=== PATIENT | male | born 1950 | race Caucasian/White ===

== ENCOUNTER → 2018-10-04 14:46 | Outpatient (CLI) | payer MEDICARE, OTHER, SELFPAY ==
[2018-10-04 16:31] LABS: Hemoglobin A1C% w Est Avg Glu 7.5 % (4.0-6.0)
== END ==
PROVIDERS: Family Provider Family Medicine; PCP Family Medicine; Visit Provider Orthopaedic Surgery
DX: R73.9 Hyperglycemia, unspecified (principal)
CPT/HCPCS: 36415; 83036

== ENCOUNTER → 2018-10-09 14:51 | Outpatient (CLI) | payer MEDICARE, OTHER, SELFPAY ==
[2018-10-09 15:08] LABS: Bacteria Urine None Seen; RBC Urine None Seen (0-5/HPF); WBC Urine None Seen (0-5/HPF)
[2018-10-09 15:23] LABS: Add Manual Diff / Slide Review NO; Basophils Absolute Auto 0 /uL (0-100); Basophils Percent Auto 0.5 % (0-2); Eosinophils Absolute Auto 200 /uL (0-450); Eosinophils Percent Auto 1.7 % (2-4); Hematocrit 44.7 % (41-53); Hemoglobin 15.4 g/dL (13.5-17.5); Lymphocytes Absolute Auto 2100 /uL (1100-4500); Lymphocytes Percent Auto 23.1 % (25-40); Mean Corpuscular HGB Conc 34.4 % (30-36); Mean Corpuscular Hemoglobin 33.9 PG (26-34); Mean Corpuscular Volume 98.5 fL (80-100); Monocytes Absolute Auto 500 /uL (0-900); Monocytes Percent Auto 5.8 % (3-14); Neutrophils Absolute Auto 6200 /uL (1500-7000); Neutrophils Percent Auto 68.9 % (50-75); Platelet Count 337 X10^3/uL (150-400); Red Blood Cell Count 4.54 X10^6/uL (4.5-5.9); Red Cell Distribution Width 12.7 % (11.6-14.8)
[2018-10-09 15:46] LABS: Appearance Urine UA CLEAR; Bilirubin Urine UA NEGATIVE (NEGATIVE); Color Urine UA YELLOW; Glucose Urine UA 1+ g/dL (Negative); Ketones Urine UA NEGATIVE (NEGATIVE); Leukocyte Esterase Urine UA TRACE (NEGATIVE); Nitrite Urine UA NEGATIVE (Negative); Occult Blood Urine UA NEGATIVE (Negative); Protein Urine UA NEGATIVE (Negative); Specific Gravity Urine UA 1.015 (1.000-1.035); Urobilinogen Urine UA 0.2 E.U./dL (0.2); pH Urine UA 6.5 (4.5-8.0)
[2018-10-09 15:47] LABS: BUN Creatinine Ratio 17.3 (6-22); Blood Urea Nitrogen 19 mg/dL (9-20); Calcium 10.2 mg/dL (8.4-10.2); Carbon Dioxide 28 mmol/L (22-32); Chloride 98 mmol/L (98-107); Estimated Glomerular Filt Rate > 60.0 mL/min (>60); Glucose 222 mg/dL (80-110); HEMOLYSIS < 15 (0-50); Potassium 5.1 mmol/L (3.4-5.1); Sodium 136 mmol/L (137-145)
[2018-10-09 15:54] LABS: Squamous Epithelial Cell Urine 0-1 /HPF; Transitional Epi Cells Urine 0-1/HPF (0-5/HPF)
== END ==
PROVIDERS: Family Provider Family Medicine; PCP Family Medicine; Visit Provider Orthopaedic Surgery
DX: N30.00 Acute cystitis without hematuria (principal); Z01.818 Encounter for other preprocedural examination
CPT/HCPCS: 36415; 80048; 81001; 85025

== ENCOUNTER 2018-10-17 14:05 | Outpatient (RCR) | payer MEDICARE, OTHER, SELFPAY ==
--- NOTE | 2018-10-17 18:28 | PT.OIE ---
Current Diagnoses Unilateral primary osteoarthritis, left hip (10/17/18) Past Medical History (Last Updated 10/08/18 @ 11:23 by Shamika Macias RN) Acid reflux (Acute) Chronic neck and back pain (Acute) Constipation (Acute) DJD (degenerative joint disease) (Acute) Diabetes (Acute) Edema (Acute) HTN (hypertension) (Acute) Hyperlipidemia (Acute) IBS (irritable bowel syndrome) (Acute) Neuropathy (Acute) Past Surgical History (Last Updated 10/08/18 @ 11:23 by Shamika Macias RN) History of colonoscopy (Acute) Hx of shoulder surgery (Acute) Hx of tonsillectomy (Acute) Provider Visit Care Team Role Provider Type Eusebia Tabares MD Primary Care Provider Non-Staff Specialty: Medical Address: [address] [place] [address], [id number] Email: Cristina Gooden MD Attending Provider Physician Specialty: Orthopedic Surgery Address: [address] [place] [address], [id number] Email: [email or web address] Physical Therapy Initial Evaluation PT-OP-A Visit Information Start: 10/17/18 15:14 Freq: Status: Active Protocol: Document 10/17/18 14:30 (Rec: 10/17/18 15:17 [email or web address]) Out-Patient Physical Therapy Visit Information Visit Information Visit Type Initial Evaluation Visit Note Pt scheduled posterior L DINO on 10/21/18 in . This IE for preop education Visit Start Time 14:30 Visit Stop Time 15:00 Total Visit Minutes 30 Visit Number 1 Number of DIE DESIGNER Visits 0 Evaluation Information Evaluation Date 10/17/18 Precautions Precautions Post hip DINO precautions PT-OP-B Current Condition Start: 10/17/18 15:14 Freq: Status: Active Protocol: Document 10/17/18 14:30 (Rec: 10/17/18 18:27 [email or web address]) Current Condition History of Current Condition Onset Date Many years ago Current Complaints L hip pain due to OA, difficulty in walking History of Current Condition Pt states he has chronic hip pain for both sides since more than 10 years ago with L>R. Pain started to get worse 2 years ago and he received conservative therapy here in [facility] before and did get better a little bit. However, pt c/o his hip pain has been increased and overall mobility is declining. Pt states his pain gets worse after walking 2-3 blocks, prolonged sitting/ standing, bending down which limits his activity tolerance for household activities such as cleaning and stair climbing . Pt currently uses a cane for ambulation. Pt lives alone with 15-18 step for stairs with rails. Future Testing and Treatments Planned Pt will receive L DINO posterior approach on 10/21/18 and decided to stay in [facility] for 2-3 days and transfer to SNF for rehab until he is safe to d/c home. Treatment Goals Patient/Caregiver Goals To return walking 2 miles a day without pain and using AD To picking tech object from floor without pain Personal Factors Other Personal Factors That May Effect DM Therapy/Recovery PT-OP-C Subjective Start: 10/17/18 15:14 Freq: Status: Active Protocol: Document 10/17/18 14:30 HH (Rec: 10/17/18 18:27 [email or web address]) OP-PT Subjective Patient Comments Patient Comments I hope this surgery will help me. Patient Questionnaires Lower Extremity Functional Scale LEFS Score 34 LEFS Impairment 40 to 59% Impaired (Score 32- 47) OP-PT Pain Assessment Location Right Hip Intensity 2 Scale Used Numeric (1 - 10) Description Aching Dull Frequency Occasional Pain Aggravating Factors Activity Exercise Standing Walking Stair Climbing Bending Pain Alleviating Factors Lying Supine Left Hip Intensity 4 Scale Used Numeric (1 - 10) Description Aching Dull Frequency Constant Pain Aggravating Factors ADL's Activity Exercise Sitting Walking Stair Climbing Bending Lifting Pain Alleviating Factors Inactivity Lying Supine PT-OP-G Mobility & Gait Start: 10/17/18 15:14 Freq: Status: Active Protocol: Document 10/17/18 14:30 HH (Rec: 10/17/18 18:27 [email or web address]) OP Gait Assessment Assistive Devices Assistive Device Small Based Quad Cane Gait Deviations General Gait Pattern Antalgic Decreased Stride Length Decreased Feet Clearance Flexed Trunk PT-OP-J Posture/Palpation/Skin Start: 10/17/18 15:14 Freq: Status: Active Protocol: Document 10/17/18 14:30 HH (Rec: 10/17/18 18:28 [email or web address]) Posture Evaluation Position Standing Head/C-Spine Posture Forward Head T-Spine Posture Increased Kyphosis Scapula Posture (L) Protracted (R) Protracted (L) Elevated (R) Elevated PT-OP-K Range of Motion Start: 10/17/18 15:14 Freq: Status: Active Protocol: Document 10/17/18 14:30 HH (Rec: 10/17/18 18:27 [email or web address]) Hip Goniometric Range of Motion Hip Measured in Degrees Right Passive Hip ROM WFL No Testing Position Supine Flexion w/Knee Flexed 95 Extension 0 Abduction 30 Left Passive Hip ROM WFL No Testing Position Supine Flexion w/Knee Flexed 90 Extension 0 Abduction 15 Hip ROM Limitations Hip ROM Limitations Pain Comments pain at all end range PT-OP-L Special Tests Start: 10/17/18 15:14 Freq: Status: Active Protocol: Document 10/17/18 14:30 HH (Rec: 10/17/18 18:27 [email or web address]) Special Tests Hip Special Tests Scour Test Test Results +ve ANG Test Results +ve PT-OP-M Strength Start: 10/17/18 15:14 Freq: Status: Active Protocol: Document 10/17/18 14:30 HH (Rec: 10/17/18 18:27 [email or web address]) Hip Strength Hip Manual Muscle Testing Right Flexion (L2) 4 Good Extension (S1) 4 Good Abduction 4 Good Adduction 4 Good Left Flexion (L2) 3+ Fair+ Extension (S1) 3+ Fair+ Abduction 3+ Fair+ Adduction 3+ Fair+ Knee Strength Knee Manual Muscle Testing Right Flexion (S2) 5 Normal Extension (L3) 5 Normal Left Flexion (S2) 5 Normal Extension (L3) 5 Normal PT-OP-Q Treatments Start: 10/17/18 15:14 Freq: Status: Active Protocol: Document 10/17/18 14:30 HH (Rec: 10/17/18 18:27 [email or web address]) Therapeutic Activity Therapeutic Activity sit to stand with stagger stance Comments keep LLE slightly straight during sit to stand to prevent >90 flexion Self-Care/Home Management Treatment Education Patient Education Body Mechanics Home Exercise Program Joint Protection Pain Management Posture Safety Other Education Post op DINO precautions and HEP with ankle pumps and quad sets, glut set and heel slides PT-OP-T Assessment and Plan Start: 10/17/18 15:14 Freq: Status: Active Protocol: Document 10/17/18 14:30 HH (Rec: 10/17/18 18:27 [email or web address]) Physical Therapy Assessment Rehab Potential Rehabilitation Potential Excellent Evaluation Complexity Number of Personal Factors/Comorbidities 1-2 Number of Body Systems Impaired 1-2 Clinical Presentation at Evaluation Stable Impairments Impairments Activity Tolerance Balance Functional Activities Functional Mobility Gait Pain Posture ROM Soft Tissue Mobility Strength Transfers Goals Activity tolerance Impairment tolerance for sitting and standing Short Term Goal (STG) Able to stand /sit more than 10 mins without pain /use of AD STG Duration 6 weeks Carpet Inspector Finished Goal (LTG) Able to stand/ sit more than 20 mins without pain/ use of AD LTG Duration 12 weeks amb distance Impairment reduced amb distance Short Term Goal (STG) able to amb 1 mile without AD and pain free STG Duration 6 weeks Care Home Goal (LTG) able to amb 2 miles without AD and pain free LTG Duration 12 weeks LEFS Impairment LEFS Carpet Inspector Finished Goal (LTG) Reach 1-19% impairment bracket LTG Duration 12 weeks HEP Impairment Follow HEP Carpet Inspector Finished Goal (LTG) pt currently does not have HEP and will follow HEP to increase overall mobility and strength for ADLs and IADLs LTG Duration 8 weeks Assessment Summary Assessment Pt is a very pleasant and motivated 68yo male presented to clinic today for preop education and training for his upcoming Posterior approach L DINO on 10/21/2018. Upon assessment, pt presents R antalgic gait with decreased R foot clearance and stride length primarily due to pain. He also demonstrated significant muscle guarding bilaterally during passive hip ROM, along with significant loss of hip ROM and strength due to his chronic B hip OA. Pt demonstrates a good understanding of his upcoming surgery and the importance of rehab and HEP. Pt is expected to be transferred to SNF for 2 weeks of rehab and d/c home with outpatient PT (1st appt on 11/04). Reeval next visit Physical Therapy Plan Frequency and Duration Frequency of Treatment 2x/Week Duration of Treatment 12 weeks Plan of Care Start Date 10/17/18 Plan of Care End Date 01/14/19 Therapeutic Interventions Therapeutic Interventions Balance Training Gait Training Home Exercise Program Manual Therapy Neuromuscular Re-education Patient/Caregiver Education Self-Care/Home Management Soft Tissue Mobilization Therapeutic Activities Therapeutic Exercises Modalities Cold Pack/Ice Massage Hot Packs Next Visit Focus/Plan Next Note Type Re-Evaluation Next Visit Plan Reeval next visit L DINO on 10/21/18
--- NOTE | 2018-10-17 18:28 | PT.OPPOC ---
Current Diagnoses Unilateral primary osteoarthritis, left hip (10/17/18) Provider Visit Care Team Role Provider Type Eusebia Tabares MD Primary Care Provider Non-Staff Specialty: Medical Address: [address] [place] [address], [id number] Email: Cristina Gooden MD Attending Provider Physician Specialty: Orthopedic Surgery Address: [address] [place] [address], [id number] Email: Plan Of Care PT-OP-T Assessment and Plan Start: 10/17/18 15:14 Freq: Status: Active Protocol: Document 10/17/18 14:30 HH (Rec: 10/17/18 18:27 [email or web address]) Physical Therapy Assessment Rehab Potential Rehabilitation Potential Excellent Evaluation Complexity Number of Personal Factors/Comorbidities 1-2 Number of Body Systems Impaired 1-2 Clinical Presentation at Evaluation Stable Impairments Impairments Activity Tolerance Balance Functional Activities Functional Mobility Gait Pain Posture ROM Soft Tissue Mobility Strength Transfers Goals Activity tolerance Impairment tolerance for sitting and standing Short Term Goal (STG) Able to stand /sit more than 10 mins without pain /use of AD STG Duration 6 weeks Cut Off Operator Scorer Goal (LTG) Able to stand/ sit more than 20 mins without pain/ use of AD LTG Duration 12 weeks amb distance Impairment reduced amb distance Short Term Goal (STG) able to amb 1 mile without AD and pain free STG Duration 6 weeks Cut Off Operator Scorer Goal (LTG) able to amb 2 miles without AD and pain free LTG Duration 12 weeks LEFS Impairment LEFS Cut Off Operator Scorer Goal (LTG) Reach 1-19% impairment bracket LTG Duration 12 weeks HEP Impairment Follow HEP Cut Off Operator Scorer Goal (LTG) pt currently does not have HEP and will follow HEP to increase overall mobility and strength for ADLs and IADLs LTG Duration 8 weeks Assessment Summary Assessment Pt is a very pleasant and motivated 68yo male presented to clinic today for preop education and training for his upcoming Posterior approach L DINO on 10/21/2018. Upon asssessment, pt presents R antalgic gait with decreased R foot clearance and stride length primarily due to pain. He also demonstrated significant muscle guarding bilaterally during passive hip ROM, along with significant loss of hip ROM and strength due to his chronic B hip OA. Pt demonstrates a good understanding of his upcoming surgery and the importance of rehab and HEP. Pt is expected to be transferred to SNF for 2 weeks of rehab and d/c home with outpatient PT (1st appt on 11/04). Reeval next visit Physical Therapy Plan Frequency and Duration Frequency of Treatment 2x/Week Duration of Treatment 12 weeks Plan of Care Start Date 10/17/18 Plan of Care End Date 01/14/19 Therapeutic Interventions Therapeutic Interventions Balance Training Gait Training Home Exercise Program Manual Therapy Neuromuscular Re-education Patient/Caregiver Education Self-Care/Home Management Soft Tissue Mobilization Therapeutic Activities Therapeutic Exercises Modalities Cold Pack/Ice Massage Hot Packs Next Visit Focus/Plan Next Note Type Re-Evaluation Next Visit Plan Reeval next vist L IDNO on 10/21/18 Plan of Care Dates Plan of Care Start Date 10/17/18 Plan of Care End Date 01/14/19 Please Sign and Return: I have reviewed this Plan of Care and certify that the skilled therapy services above are required to meet the patient?s needs. Physician Signature Date Printed Name and Credentials Clinical Instructor Signature Printed Name and Credentials
--- NOTE | 2019-01-20 09:42 | PT.OTN ---
Current Diagnoses Unilateral primary osteoarthritis, left hip (10/17/18) Physical Therapy Treatment Note PT-OP-A Visit Information Start: 10/17/18 15:14 Freq: Status: Active Protocol: Document 10/17/18 14:30 (Rec: 10/17/18 15:17 [email or web address]) Out-Patient Physical Therapy Visit Information Visit Information Visit Type Initial Evaluation Visit Note Pt scheduled posterior L DINO on 10/21/18 in . This IE for preop education Visit Start Time 14:30 Visit Stop Time 15:00 Total Visit Minutes 30 Visit Number 1 Number of DISTRICT AGENT Visits 0 Evaluation Information Evaluation Date 10/17/18 Precautions Precautions Post hip DINO precautions PT-OP-B Current Condition Start: 10/17/18 15:14 Freq: Status: Active Protocol: Document 10/17/18 14:30 (Rec: 10/17/18 18:27 [email or web address]) Current Condition History of Current Condition Onset Date Many years ago Current Complaints L hip pain due to OA, difficulty in walking History of Current Condition Pt states he has chronic hip pain for both sides since more than 10 years ago with L>R. Pain started to get worse 2 years ago and he received conservative therapy here in before and did get better a little bit. However, pt c/o his hip pain has been increased and overall mobility is declining. Pt states his pain gets worse after walking 2-3 blocks, prolonged sitting/ standing, bending down which limits his activity tolerance for household activities such as cleaning and stair climbing . Pt currently uses a cane for ambulation. Pt lives alone with 15-18 step for stairs with rails. Future Testing and Treatments Planned Pt will receive L DINO posterior approach on 10/21/18 and decided to stay in [facility] for 2-3 days and transfer to SNF for rehab until he is safe to d/c home. 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 Patient Questionnaires Lower Extremity Functional Scale LEFS Score 34 LEFS Impairment 40 to 59% Impaired (Score 32- 47) OP-PT Pain Assessment Location Right Hip Intensity 2 Scale Used Numeric (1 - 10) Description Aching Dull Frequency Occasional Pain Aggravating Factors Activity Exercise Standing Walking Stair Climbing Bending Pain Alleviating Factors Lying Supine Left Hip Intensity 4 Scale Used Numeric (1 - 10) Description Aching Dull Frequency Constant Pain Aggravating Factors ADL's Activity Exercise Sitting Walking Stair Climbing Bending Lifting Pain Alleviating Factors Inactivity Lying Supine PT-OP-G Mobility & Gait Start: 10/17/18 15:14 Freq: Status: Active Protocol: Document 10/17/18 14:30 HH (Rec: 10/17/18 18:27 [email or web address]) OP Gait Assessment Assistive Devices Assistive Device Small Based Quad Cane Gait Deviations General Gait Pattern Antalgic Decreased Stride Length Decreased Feet Clearance Flexed Trunk PT-OP-J Posture/Palpation/Skin Start: 10/17/18 15:14 Freq: Status: Active Protocol: Document 10/17/18 14:30 HH (Rec: 10/17/18 18:28 [email or web address]) Posture Evaluation Position Standing Head/C-Spine Posture Forward Head T-Spine Posture Increased Kyphosis Scapula Posture (L) Protracted (R) Protracted (L) Elevated (R) Elevated PT-OP-K Range of Motion Start: 10/17/18 15:14 Freq: Status: Active Protocol: Document 10/17/18 14:30 HH (Rec: 10/17/18 18:27 [email or web address]) Hip Goniometric Range of Motion Hip Measured in Degrees Right Passive Hip ROM WFL No Testing Position Supine Flexion w/Knee Flexed 95 Extension 0 Abduction 30 Left Passive Hip ROM WFL No Testing Position Supine Flexion w/Knee Flexed 90 Extension 0 Abduction 15 Hip ROM Limitations Hip ROM Limitations Pain Comments pain at all end range PT-OP-L Special Tests Start: 10/17/18 15:14 Freq: Status: Active Protocol: Document 10/17/18 14:30 HH (Rec: 10/17/18 18:27 [email or web address]) Special Tests Hip Special Tests Scour Test Test Results +ve ANG Test Results +ve PT-OP-M Strength Start: 10/17/18 15:14 Freq: Status: Active Protocol: Document 10/17/18 14:30 HH (Rec: 10/17/18 18:27 HH [email or web address]) Hip Strength Hip Manual Muscle Testing Right Flexion (L2) 4 Good Extension (S1) 4 Good Abduction 4 Good Adduction 4 Good Left Flexion (L2) 3+ Fair+ Extension (S1) 3+ Fair+ Abduction 3+ Fair+ Adduction 3+ Fair+ Knee Strength Knee Manual Muscle Testing Right Flexion (S2) 5 Normal Extension (L3) 5 Normal Left Flexion (S2) 5 Normal Extension (L3) 5 Normal PT-OP-Q Treatments Start: 10/17/18 15:14 Freq: Status: Active Protocol: Document 10/17/18 14:30 HH (Rec: 10/17/18 18:27 HH [email or web address]) Therapeutic Activity Therapeutic Activity sit to stand with stagger stance Comments keep LLE slightly straight during sit to stand to prevent >90 flexion Self-Care/Home Management Treatment Education Patient Education Body Mechanics Home Exercise Program Joint Protection Pain Management Posture Safety Other Education Post op IDNO precautions and HEP with ankle pumps and quad sets, glut set and heel slides PT-OP-T Assessment and Plan Start: 10/17/18 15:14 Freq: Status: Active Protocol: Document 01/20/19 09:40 AMB (Rec: 01/20/19 09:42 AMB [email or web address]) Physical Therapy Assessment Assessment Summary Assessment Baljeet was scheduled for 4 appointments of physical therapy after his total hip but canceled all of them stating that he no longer needs therapy, therefore he is discharged at this time. Physical Therapy Plan Discharge Physical Therapy Discharge Reasons No Longer Attending PT
== END 2019-01-22 16:42 ==
LOC: PHYS 14:05
PROVIDERS: PCP Family Medicine; Visit Provider Orthopaedic Surgery
DX: M16.12 Unilateral primary osteoarthritis, left hip (principal)
CPT/HCPCS: 97161; 97535

== ENCOUNTER 2018-10-21 11:56 | Inpatient (IN) | payer MEDICARE, OTHER, SELFPAY ==
[2018-10-08 10:52] VITALS: BMI 28.3
[2018-10-21] VITALS (13 sets, daily range): BP systolic 89–137; BP diastolic 55–77; PULSE 72–93; RESP 11–19; TEMP 36.3–36.8; O2SAT 92–100; BMI 28.3; BMI 30.6
[2018-10-21] MEDS: LACTATED RINGERS 1,000 ML 42 ML IV ×2 (12:25→15:22)
[2018-10-21] MEDS: VANCOMYCIN 1,000 MG/200 ML FROZ.PIGGY 200 MG IV (12:30)
[2018-10-21] MEDS: PREGABALIN 75 MG CAPSULE PO (12:45)
[2018-10-21] MEDS: ACETAMINOPHEN 325 MG TABLET 975 MG PO ×2 (12:45→21:42)
[2018-10-21] MEDS: CELECOXIB 200 MG CAPSULE PO (12:45)
[2018-10-21] MEDS: CEFAZOLIN 2 GM/100 ML FROZ.PIGGY IV ×2 (13:26→21:59)
--- NOTE | 2018-10-21 13:30 | PM.PREOP ---
Pre-operative Note Interval Note History & Physical reviewed/Exam performed by Physician: Yes Changes to H&P: No H&P completed within 30 days and has changed as indicated here:: sebaceous cyst on thoracic spine, no evidence of infection
--- NOTE | 2018-10-21 13:32 | P.OP_ITS ---
Operative Date/Time/Diagnoses Date of procedure: 10/21/18 Time of procedure: 13:31 Pre-op diagnosis: left hip osteoarthritis Post-op diagnosis: same Procedure & Clinicians Procedure: Left total hip arthroplasty Same procedure as scheduled: Yes Indications: The patient has had progressively worsening left hip pain with radiographic changes consistent with arthritis. Non-operative management has failed and the patient has requested total hip replacement. The risks, benefits and alternatives to surgery were discussed with the patient prior to proceeding. Risks discussed included, but were not limited to, failure to relieve pain, leg length discrepancy, dislocation, stiffness, infection, nerve damage, deep venous thrombosis, pulmonary embolism, stroke, coma, heart attack, permanent paralysis and , as well as the potential need for eventual revision of the prosthetic. Surgeon: Cristina Gooden Petroleum Production Engineer: Greg Bundy Anesthesia Type: General and Spinal Operative Notes Findings: Severe left hip osteoarthritis, adequate stability Closure Type: primary Specimen(s): none sent Prosthetic devices, grafts, tissues, transplants, or devices: [employer] R3 54 cup 36+ 4, anthology size 7 standard offset Applied: drain(s) Estimated Blood Loss (mL): 250 Blood products transfused: none Procedure in detail: The patient was seen in the pre-operative area, where the patient identified the left hip as the operative site and this was marked with my initials. The patient received pre-operative antibiotics and was taken to the operating room and placed on the operative table in the right lateral decubitus position after satisfactory anesthesia. A part time flexible clerk out was performed. The left leg was prepared from the ankle to the iliac crest with ChloroPrep in the usual fashion and draped through sterile drapes. The hip was approached through an approximately 20 cm incision centered over the greater trochanter and curving gently posteriorly as it went proximally. This was carried sharply to the fascia johny, which was divided and retracted with a self retaining retractor. The trochanteric bursa was excised with care being taken to avoid the sciatic nerve, which was identified and protected throughout the case. The short external rotators were incised and the capsulomuscular flap was raised and tagged for later repair. The hip was dislocated, and a femoral neck osteotomy performed approximately 15 mm above the lesser trochanter. Retractors were placed around the femur. The canal was opened with a box cutting osteotome, followed by a T handled reamer and a lateralizing reamer. The chili pepper broach was then used, followed by sequential broaching until there was good stability of the broach in the femur. Retractors were placed to expose the acetabulum. The labrum and central soft tissues were removed. Reaming was performed initially going up in 2 mm increments, then 1 mm increments until good bite was obtained with an odd sized reamer. The cup 1 mm larger than the last reamer was then inserted using the appropriate anteversion guides. A trial neutral liner was placed. The broach was placed in the canal. A trial head and neck were then placed and the hip relocated and checked for leg length and stability. An intraoperative film confirmed the component position and no evidence of fracture. The patient was stable in the position of sleep, of squatting, and could be put through a range of motion with 45 degrees internal rotation without dislocation. At 90 degrees flexion, internal rotation to 70 degrees was possible before dislocation. This was felt to be satisfactory and the appropriate components were opened, and the trials were removed. The acetabular liner was impacted into position. The final stem was then impacted into the prepared femoral canal. A brief Betadine soak was performed while trialing with head options. The hip was meticulously irrigated with normal saline. Finally the femoral head was impacted onto the stem. The acetabulum was cleared of all material and the hip relocated one final time. The capsulomuscular flap was then repaired to the greater trochanter though an awl hole using the tag sutures. The short external rotators were repaired with a nonabsorbable suture. A deep drain was placed and brought out anteriorly. The fascia johny was closed with vicryl. The subcutaneous layer was closed with barbed sutures and SteriStrips. An Dariela dressing was applied and the patient was taken to recovery having tolerated the procedure well. Complications: none Condition: stable Disposition: Acute Care Plan for aftercare: Patient will be admitted postoperatively after his left hip arthroplasty. He has diabetes which is somewhat difficult to control. A medical consultation has been requested. He will begin physical therapy with routine posterior hip precautions. I anticipate he will need a several day hospital stay and likely would benefit from discharge to rehab facility.
--- NOTE | 2018-10-21 13:58 | SUR.OPER ---
Lateral on padded OR bed. Gel axillary roll. Arms secured on padded armboard with pillow supporting top arm. Padded hip positioner braces x4 - anterior and posterior chest and pelvis. Additional gel pad used anterior pelvis. Gel pad under bottom leg from knee to foot and secured with tape over sheet.
--- NOTE | 2018-10-21 14:00 | DI.RAD.S_ITS ---
PROCEDURE: XR HIP W PEL IF DONE LT 2V INDICATIONS: LEFT TOTAL HIP TECHNIQUE: AP pelvis with lateral view(s) of the left hip(s). COMPARISON: [facility], , HIP 2V LEFT, 04/15/2015, 10:16. FINDINGS: Bones: No fractures or dislocations. Pelvic ring appears intact. No suspicious bony lesions. Expected postoperative alignment of left total hip arthroplasty. Soft tissues: Overlying postsurgical soft tissue changes IMPRESSION: Expected postoperative alignment. Dictated by: Shayan Chang M.D. on 10/21/2018 at 16:32 Approved by: Shayan Chang M.D. on 10/21/2018 at 16:37
[2018-10-21] MEDS: BUPIVACAINE 0.25% W/ EPI VIAL 60 ML INJ (14:05)
[2018-10-21] MEDS: POVIDONE-IODINE 15 ML, SODIUM CHLORIDE 0.9% 250 ML TOP (14:06)
--- NOTE | 2018-10-21 16:21 | SUR.PHASEI ---
pt transferred to acute care floor in stable condition. pt alert and talking to rn during transport. Bedside report given to Bonilla Sprague upon arrival to room. pt transferred to Bonilla Sprague at that time.
[2018-10-21] MEDS: GABAPENTIN 400 MG CAPSULE 800 MG PO (17:54)
[2018-10-21] MEDS: LACTATED RINGERS 1,000 ML 125 ML IV (17:55)
[2018-10-21] MEDS: ONDANSETRON 4 MG/2 ML INJ IV (19:52)
[2018-10-21] MEDS: ONDANSETRON 4 MG ODT PO (21:00)
[2018-10-21] MEDS: INSULIN GLARGINE 100 UNIT/ML 3ML PEN 9 UNIT SUBCUT (21:55)
[2018-10-22] VITALS (9 sets, daily range): BP systolic 88–139; BP diastolic 51–78; PULSE 79–101; RESP 16–18; TEMP 36.4–36.8; O2SAT 95–98
[2018-10-22] MEDS: ONDANSETRON 4 MG/2 ML INJ IV (00:20)
[2018-10-22] MEDS: GABAPENTIN 400 MG CAPSULE 800 MG PO ×4 (00:23→21:57)
[2018-10-22] MEDS: DOCUSATE 100 MG CAPSULE PO ×3 (00:23→21:56)
[2018-10-22] MEDS: ATORVASTATIN 20 MG TABLET PO ×2 (00:31→21:57)
[2018-10-22] MEDS: AMITRIPTYLINE 25 MG TABLET 100 MG PO ×2 (00:31→21:56)
[2018-10-22] MEDS: ZONISAMIDE 100 MG CAPSULE PO ×2 (00:31→21:55)
[2018-10-22] MEDS: LACTATED RINGERS 1,000 ML 125 ML IV (02:00)
[2018-10-22] MEDS: CEFAZOLIN 2 GM/100 ML FROZ.PIGGY IV (05:23)
--- NOTE | 2018-10-22 06:15 | PC.NURSE ---
Pt is AxOx3, VSS. Reports no pain. Was nauseous in beginning of shift, relieved with Zofran. No emesis. LR@125mL/hr. ABX given as ordered. CMS+, good pedal pulses, feet cold to touch. Fingerstick around 0200 was 189. Pt is very weak upon standing, wobbly. Hemovac drained 20cc sanguinous. DARÍO dressing C/D/I functioning properly throughout shift. Pt attempted to void several times throughout shift unsuccessfully. Bladder scan showed 467mL. Straight cath was performed and drained 500mL of clear yellow urine.
[2018-10-22 06:47] LABS: Hematocrit 39.8 % (41-53); Hemoglobin 13.6 g/dL (13.5-17.5)
--- NOTE | 2018-10-22 07:27 | P.CONS_ITS ---
History of Present Illness Date Patient Seen: 10/22/18 Chief complaint: left hip [id number] Reason for consult: Insulin management Requesting provider: Cristina Gooden Narrative: Baljeet Sylvester is a 68-year-old male with past medical history significant for hypertension, hyperlipidemia, diabetes mellitus type 2, insulin using, and osteoarthritis who is now status post total left hip arthroplasty. Postop day #1. Medicine team was consulted for insulin management. The patient is resting in bed comfortably. He reports his pain is controlled with as needed pain medication. He has been well controlled in regards to his diabetes mellitus type 2 with most recent hemoglobin A1c 7.5% in August 2018. I discussed nutrition in depth and made specific recommendations to help control his diabetes in the future and potentially decrease his insulin requirements or get him off insulin altogether. Patient has good insight into diabetic medication regimen. He denies headache, chest pain, shortness of breath, abdominal pain, nausea, vomiting, fever, chills, dysuria, diarrhea constipation. He had some emesis postoperatively last night. His long-acting insulin was cut in half due to anticipated decreased p.o. intake. He has no other concerns [facility] Medical History Migraine (Acute) Acid reflux (Acute) Chronic neck and back pain (Acute) Constipation (Acute) DJD (degenerative joint disease) (Acute) Diabetes (Acute) Edema (Acute) HTN (hypertension) (Acute) Hyperlipidemia (Acute) IBS (irritable bowel syndrome) (Acute) Neuropathy (Acute) Surgical History History of colonoscopy (Acute) Hx of shoulder surgery (Acute) Hx of tonsillectomy (Acute) Social History household members: none Smoking Status: Never smoker alcohol intake: former Family History Mother No problems noted. Father No problems noted. Social History household members: none Smoking Status: Never smoker alcohol intake: former Meds Home Medications Medication Instructions Recorded Confirmed Type amitriptyline 100 mg PO BEDTIME #0 12/06/10 10/21/18 History atorvastatin 20 mg PO BEDTIME #0 12/06/10 10/21/18 History gabapentin [Neurontin] 800 mg PO TID #0 12/06/10 10/21/18 History insulin glargine [Lantus U-100 18 unit SUBCUT BEDTIME #0 12/06/10 10/21/18 History Insulin] lisinopril 20 mg PO DAILY #0 12/06/10 10/21/18 History metformin 1,000 mg PO BID #0 12/06/10 10/08/18 History aspirin 81 mg PO QDAY #0 06/14/17 10/21/18 History magnesium oxide 250 mg PO BID #0 06/14/17 10/08/18 History multivitamin [Multiple Vitamins] 1 tab PO QDAY #0 06/14/17 10/08/18 History zonisamide 100 mg PO BEDTIME #0 06/14/17 10/08/18 History acetaminophen [Tylenol Extra 1,000 mg PO Q6H PRN 10/08/18 10/21/18 History Strength] insulin aspart U-100 [Novolog 10 - 15 unit SUBCUT TID 10/08/18 10/21/18 History U-100 Insulin aspart] ranitidine HCl 75 mg PO DAILY PRN 10/08/18 10/08/18 History dicyclomine 10 mg PO PRN PRN 10/21/18 10/22/18 History metformin 1,000 mg BID 10/21/18 10/21/18 History zonisamide 100 mg DAILY 10/21/18 10/21/18 History Allergies Allergy/AdvReac Type Severity Reaction Status Date / Time No Known Drug Allergies Allergy Verified 10/18/18 13:51 Review of Systems Review of Systems A 10 system comprehensive review of systems was conducted with the patient and found to be negative except as above in the History of Present Illness. Exam Vital Signs (past 8 hours): - 10/22/18 00:10 10/22/18 05:20 Temperature 97.5 F L 98.2 F Pulse Rate 95 H 101 H Respiratory Rate 16 16 Blood Pressure 139/78 131/78 Pulse Oximetry 96 98 Oxygen Delivery Method Room Air Narrative Exam Narrative: General: Middle-aged gentleman lying in bed and in no acute distress, well- developed, well-nourished, appropriately interactive. HEENT: Normocephalic, atraumatic. External ears without defect. Pupils equal, round, and reactive to light. Anicteric sclerae, moist conjunctivae, and no lid lag. Oropharynx free of erythema and cobble stoning with moist mucosa. Neck: Supple with full range of motion. No jugular venous distension. No bruits. No lymphadenopathy or thyromegaly. Cardiovascular: Regular rate and rhythm without murmurs, rubs, or gallops appreciated. Pulmonary: Clear to auscultation bilaterally without crackles, wheezes, or rhonchi. Normal respiratory effort with no use of accessory muscles. Abdomen: Soft, bowel sounds present, nontender, nondistended. No hepatosplenomegaly or masses appreciated. Extremities: No clubbing, cyanosis, or edema. Left hip with dressing in place C/ D/I and vac draining serosanguineous fluid. Skin: Normal temperature, turgor, and texture; no rash, ulcers, or subcutaneous nodules appreciated. Neurological: Cranial nerves grossly intact. Psychiatric: Normal mood and affect. Alert and oriented to person, place, and time. Objective Labs Result Diagrams: 10/22/18 06:25 Labs: Laboratory Results - last 24 hr 10/22/18 06:25 Hgb 13.6 Hct 39.8 L Assessment & Plan Plan: Assessment/Plan Narrative: Baljeet Sylvester is a 68-year-old male with past medical history significant for hypertension, hyperlipidemia, diabetes mellitus type 2, insulin using, and osteoarthritis who is now status post total left hip arthroplasty. Postop day # 1. Medicine team was consulted for insulin management. 1. Total left hip arthroplasty, not present on admission. Active. -postop and pain management per Ortho. 2. Diabetes mellitus type 2, insulin using, present on admission. Active. -Restarted Lantus yesterday evening at half his normal dose of 18 units. Plan to restart normal dose of Lantus this evening. -Ordered low-dose correctional scale insulin. -Unfortunately unable to do nutritional insulin with sliding scale, therefore, continued nutritional insulin with 10 units 3 times daily with meals. -Ordered [facility] blood glucose checks. Thank you for consulting our services. We will sign off at this time but if you need our help further with glucose management please feel free to consult our service.
[2018-10-22] MEDS: INSULIN ASPART 100 UNIT/ML INSULN PEN SUBCUT ×3 (08:25→16:48)
[2018-10-22] MEDS: ACETAMINOPHEN 325 MG TABLET 975 MG PO ×3 (08:25→21:56)
[2018-10-22] MEDS: TAMSULOSIN 0.4 MG CAPSULE PO (08:26)
[2018-10-22] MEDS: ASPIRIN EC 81 MG TABLET PO ×2 (08:27→21:56)
[2018-10-22] MEDS: METFORMIN HCL 500 MG TABLET 1000 MG PO ×2 (08:28→21:56)
[2018-10-22] MEDS: LISINOPRIL 20 MG TABLET PO (08:28)
[2018-10-22] MEDS: IBUPROFEN 600 MG TABLET PO ×2 (08:29→18:38)
[2018-10-22] MEDS: MULTIVITAMIN 1 TABLET 1 TAB PO (08:29)
--- NOTE | 2018-10-22 09:30 | PT.IIE ---
Current Diagnoses Unilateral primary osteoarthritis, left hip (10/21/18) Surgery Performed Operation Date: 10/21/18 14:00 Actual Procedures p Total Hip Arthroplasty(Left) - Cristina Gooden MD Surgical History (Last Updated 10/08/18 @ 11:23 by Shamika Macias, RN) History of colonoscopy (Acute) Hx of shoulder surgery (Acute) Hx of tonsillectomy (Acute) Medical History (Last Updated 10/21/18 @ 18:23 by Rosa Maria Alvarez RN) Migraine (Acute) Acid reflux (Acute) Chronic neck and back pain (Acute) Constipation (Acute) DJD (degenerative joint disease) (Acute) Diabetes (Acute) Edema (Acute) HTN (hypertension) (Acute) Hyperlipidemia (Acute) IBS (irritable bowel syndrome) (Acute) Neuropathy (Acute) Physical Therapy Inpatient Evaluation/Re-Eval M1 PT/OT-IP Prior Functional Status Start: 10/22/18 11:04 Freq: NEEDED Status: Active Protocol: Document 10/22/18 09:30 AB (Rec: 10/22/18 11:23 AB [id number]) Medical Review Prior Functional Status Medical History Reviewed Yes Communication able to make needs known Mobility and Gait pt stated that he is independent with all mobilities and ambulation without AD indoors but tends to furniture cruise; uses SPC for outdoor mobility Social History Household Members none Living Arrangements House Number of Floors (Floors) Two Floors Number of Stairs To Enter/Railing? pt stays on main level of the house; has a ramp to enter Home Environment Standard Height Toilet Tub/Shower Home Equipment Front Wheel Walker Hand Held Shower Long Handled Shoe Horn Sock Aid Grab Bars In Shower Employment Status Retired M2 PT-IP Current Condition Start: 10/22/18 11:04 Freq: NEEDED Status: Active Protocol: Document 10/22/18 09:30 AB (Rec: 10/22/18 11:23 AB [id number]) Physical Therapy Current Condition Current Condition Evaluation Date 10/22/18 Treatment Diagnosis s/p L DINO posterior approach; difficulty in walking Onset Date 10/21/18 Precautions Posterior Hip Precautions No Hip Flexion > 90 degrees No Hip Internal Rotation No Hip Adduction Other Precautions falls Weight Bearing Status Weight Bearing Status Weight Bear as Tolerated M3 PT-IP Subjective Start: 10/22/18 11:04 Freq: NEEDED Status: Active Protocol: Document 10/22/18 09:30 AB (Rec: 10/22/18 11:23 AB [id number]) Subjective Physical Therapy Visit Type Type Initial Evaluation Visit Start Time 09:30 Visit Stop Time 10:00 Total Visit Minutes 30 Number of MIDDLE SCHOOL DIRECTOR Visits 0 Physical Therapy Visit Comments Patient Comments pt agreeable to do PT Therapy Pain Assessment Pain When Pain Assessed At Rest Pain Present Pain Present Pain Reported Location Left Hip Intensity 3 Scale Used Numeric (1 - 10) Pain Management Techniques Apply Cold Re-positioning Timing of Activity with Medications M4 PT-IP Mobility and Gait Start: 10/22/18 11:04 Freq: NEEDED Status: Active Protocol: Document 10/22/18 09:30 AB (Rec: 10/22/18 11:23 AB [id number]) PT-Bed Mobility Assessment Supine to Sit Supine to Sit Standby Assistance Sit to Supine Sit to Supine Standby Assistance PT-Transfer Assessment Sit to and From Stand Sit to and from Stand Minimal Assistance 1 Person Assistance Use of Upper Extremities Equipment Transfer Assistive Device Gait Belt Front Wheeled Walker Orthotic/Prosthetic Devices or Brace: No Transfers Transfer Destination Bed Chair Transfer Technique Stand Step Pivot Transfer Ability Level of Assist Minimal Assistance Use of Upper Extremities Comments Mobility Comments pt sitting on bedside commode and completed transfer using FWW min A and cues to bed. pt completed bed mobility SBA. transferred to chair using FWW min A and cues to maintain hip precautions. pt agreed to do ambulation aftewards. Gait Assessment Gait Gait Assistance Required: Minimum Assistance Distance (Feet) 50 Able to Maintain Weight Bearing Status Yes During Gait Assistive Devices Assistive Device Gait Belt Front Wheeled Walker Orthotic/Prosthetic Devices or Brace: No Gait Deviations General Gait Pattern Antalgic Decreased Stride Length Decreased Feet Clearance Factors Limiting Gait Function Factors Limiting Gait Function Decreased Activity Tolerance Decreased Strength Limited Range of Motion Pain Poor Balance Poor Safety Awareness PT-Balance Assessment Sitting Balance and Reactions Static Sitting Balance Ability Good Dynamic Sitting Balance Ability Good Standing Balance and Reactions Static Standing Balance Ability Fair Dynamic Standing Balance Ability Fair Device Used FWW M5 PT-IP Objective Assessments Start: 10/22/18 11:04 Freq: NEEDED Status: Active Protocol: Document 10/22/18 09:30 AB (Rec: 10/22/18 11:23 AB [id number]) Orientation Orientation/Cognition Level of Alertness Alert Orientation Name Age Month Year Place Situation Gross Range of Motion Lower Extremity ROM Assessment Within Functional Limits Strength Lower Extremity Strength Assessment Left Impaired Knee 3+/5 Coordination Assessment Gross Coordination Gross Coordination WNL Sensation Assessment Sensation Gross Sensation WNL Muscle Tone Muscle Tone WNL Yes M6 PT-IP Treatment Start: 10/22/18 11:04 Freq: NEEDED Status: Active Protocol: Document 10/22/18 09:30 AB (Rec: 10/22/18 11:23 AB [id number]) Physical Therapy Treatment Education Education Provided Precautions Weight Bearing Status Post-Op Packet Safety M7 PT-IP Assessment and Plan Start: 10/22/18 11:04 Freq: NEEDED Status: Active Protocol: Document 10/22/18 09:30 AB (Rec: 10/22/18 11:23 AB [id number]) PT Summary Assessment and Plan Potential Rehabilitation Potential Good Status of Condition at Evaluation Stable Summary Impairments Pain ROM Strength Balance Bed Mobility Transfers Gait Activity Tolerance Assessment Summary pt requiring one person assist with mobility. pt does not have anybody to assist him at home and will benefit from SNF rehab to improve strength and independence prior to d/c home. Goals Bed Mobility Goal Standby Assistance Transfer Goal Standby Assistance Front Wheeled Walker Gait Goal Standby Assistance Front Wheel Walker Gait Distance 100 Days to Meet Goals 5 Frequency of Treatment Frequency Of Treatment Twice a Day Treatment Plan Physical Therapy Treatment Plan Bed Mobility Training Transfer Training Gait Training Therapeutic Exercise Balance Retraining Post Op Education Discharge Planning Hot or Cold Pack Neuromuscular Re-ed Coordination Retraining Manual Therapy Other Recommendations and Next Treatment ambulation, sit<>stand Focus Recommendations To Nursing Amount of Assist Needed 1 Person Assist Discharge Recommendations PT Discharge Recommendations SNF Rehab
--- NOTE | 2018-10-22 09:48 | PC.NURSE ---
Day shift: Bobby-vac removed per verbal order from ortho [facility]. Pt [id number] well. Aprox 15ml serosang fluid present. Covered site with 2x2 and Tegaderm.
--- NOTE | 2018-10-22 11:22 | P.PN_ITS ---
Subjective Date Patient Seen: 10/22/18 Interval history: Patient seen bedside s/p L. DINO POD #1. Patient is doing well , has not needed pain medication all night but is complaining of pain now as the local is starting to wear off. He is also complaining of difficulty urinating and had to be straight cathed a few times overnight. Denies SOB, CP, calf pain. Has not been up with PT yet. He did have a lot of nausea/vomiting last night, but it has since resolved. Exam Vital Signs (past 8 hours): - 10/22/18 00:10 10/22/18 05:20 Temperature 97.5 F L 98.2 F Pulse Rate 95 H 101 H Respiratory Rate 16 16 Blood Pressure 139/78 131/78 Pulse Oximetry 96 98 Oxygen Delivery Method Room Air Narrative Exam Narrative: WDWN NAD A&Ox3. DARÍO dressing on left hip is clean, dry, and intact with no signs of drainage. Minimal drainage in hemovac drain. Calves soft and compressible. ROM of the ankle/knee intact. Objective Labs Result Diagrams: 10/22/18 06:25 Labs: Laboratory Results - last 24 hr 10/22/18 06:25 Hgb 13.6 Hct 39.8 L Assessment & Plan Post-op Postoperative Procedures Operation Date: 10/21/18 14:00 Actual Procedures Side Surgeon p Total Hip Arthroplasty Left Cristina Gooden MD 1. POD #1 s/p above procedure--PT/OT, pain control. Patient would like to go to a SNF because he has no home support. 2. Difficulty urinating--add flomax, continue fluids. 3. DM--BS high in 200's, medicine on board to handle it. Dispo- to SNF. Quality VTE Deep Vein Thrombosis/Pulmonary Embolism Present on Admission: No
[2018-10-22] MEDS: INSULIN ASPART 100 UNIT/ML 10ML VIAL 10 UNIT SUBCUT ×2 (11:58→16:50)
--- NOTE | 2018-10-22 14:21 | PT.IPTN ---
Current Diagnoses Unilateral primary osteoarthritis, left hip (10/21/18) Surgery Performed Operation Date: 10/21/18 14:00 Actual Procedures p Total Hip Arthroplasty(Left) - Cristina Gooden MD Physical Therapy Treatment Note M2 PT-IP Current Condition Start: 10/22/18 11:04 Freq: NEEDED Status: Active Protocol: Document 10/22/18 09:30 AB (Rec: 10/22/18 11:23 AB [id number]) Physical Therapy Current Condition Current Condition Evaluation Date 10/22/18 Treatment Diagnosis s/p L DINO posterior approach; difficulty in walking Onset Date 10/21/18 Precautions Posterior Hip Precautions No Hip Flexion > 90 degrees No Hip Internal Rotation No Hip Adduction Other Precautions falls Weight Bearing Status Weight Bearing Status Weight Bear as Tolerated M3 PT-IP Subjective Start: 10/22/18 11:04 Freq: NEEDED Status: Active Protocol: Document 10/22/18 13:50 HH (Rec: 10/22/18 14:21 HH [id number]) Subjective Physical Therapy Visit Type Type Treatment Note Visit Start Time 13:50 Visit Stop Time 14:10 Total Visit Minutes 20 Notes Pt sitting on bedside chair. Agreeable to mobilize with PT Number of MATTRESS PACKER Visits 0 Physical Therapy Visit Comments Patient Comments I am pretty tired today since i didnt have enough sleep last night. M4 PT-IP Mobility and Gait Start: 10/22/18 11:04 Freq: NEEDED Status: Active Protocol: Document 10/22/18 13:50 HH (Rec: 10/22/18 14:21 HH [id number]) PT-Transfer Assessment Sit to and From Stand Sit to and from Stand Contact Guard Assistance 1 Person Assistance Use of Upper Extremities Equipment Transfer Assistive Device Gait Belt Front Wheeled Walker Orthotic/Prosthetic Devices or Brace: No Transfers Transfer Destination Chair Transfer Technique Stand Step Pivot Transfer Ability Level of Assist Contact Guard Assistance 1 Person Assistance Use of Upper Extremities Comments Mobility Comments Pt stood up from bedside chair without cues for using stagger stance with FWW and CGA. But he did need cues to use stagger stance during stand to sit. Pt required cues to facilitate WB on L side. Pt states My L hip still feels stiff. Gait Assessment Gait Gait Assistance Required: Contact Guard Assist 1 Person Assist Distance (Feet) 80 Able to Maintain Weight Bearing Status Yes During Gait Assistive Devices Assistive Device Gait Belt Front Wheeled Walker Orthotic/Prosthetic Devices or Brace: No Gait Deviations General Gait Pattern Antalgic Decreased Stride Length Decreased Feet Clearance Factors Limiting Gait Function Factors Limiting Gait Function Decreased Activity Tolerance Decreased Strength Limited Range of Motion Pain Poor Balance Poor Safety Awareness Comments Gait Comments Pt amb from bedside chair to hallway with 1p CGA. Pt demonstrates mod antalgic gait with decreased stride length and feet clearance. Pt required cues to facilitate increased WB on R LE. M5 PT-IP Objective Assessments Start: 10/22/18 11:04 Freq: NEEDED Status: Active Protocol: Document 10/22/18 09:30 AB (Rec: 10/22/18 11:23 AB [id number]) Orientation Orientation/Cognition Level of Alertness Alert Orientation Name Age Month Year Place Situation Gross Range of Motion Lower Extremity ROM Assessment Within Functional Limits Strength Lower Extremity Strength Assessment Left Impaired Knee 3+/5 Coordination Assessment Gross Coordination Gross Coordination WNL Sensation Assessment Sensation Gross Sensation WNL Muscle Tone Muscle Tone WNL Yes M6 PT-IP Treatment Start: 10/22/18 11:04 Freq: NEEDED Status: Active Protocol: Document 10/22/18 13:50 HH (Rec: 10/22/18 14:21 HH [id number]) Physical Therapy Treatment Exercises Exercises Ankle Pumps Gluteal Sets Quad Sets Heel Slides Education Education Provided Precautions Weight Bearing Status Post-Op Packet Safety Other Treatments Other Treatment Performed standing TKE M7 PT-IP Assessment and Plan Start: 10/22/18 11:04 Freq: NEEDED Status: Active Protocol: Document 10/22/18 13:50 HH (Rec: 10/22/18 14:21 [id number]) PT Summary Assessment and Plan Summary Assessment Summary Pt showed improved overall mobility and decreased assistance needed this pm. Pt did c/o fatigue and stiffness at L hip. Pt will benefit from SNF for overall strengthening and increase mobility since pt lives alone at home. Goals Bed Mobility Goal Standby Assistance Days to Meet Goals 5 Frequency of Treatment Frequency Of Treatment Twice a Day Recommendations To Nursing Amount of Assist Needed 1 Person Assist Discharge Recommendations PT Discharge Recommendations SNF Rehab
[2018-10-22] MEDS: OXYCODONE IR 5 MG TABLET PO ×2 (18:38→21:55)
--- NOTE | 2018-10-22 18:47 | PC.NURSE ---
Addendum entered by Rosa Maria Alvarez R.N. 10/22/18 20:47: Last BP taken by PC INSTALLATION ENGINEER was 88/51 w/ patient at rest & HOB at 40 degrees. HOB flat, BP retaken by me at 100/55. He denies any dizziness or light headedness, face pale. HR in 80's, regular rhythm. Denies nausea. Teaching done about side effects of surgery/anesthesia/medications. L hip DARÍO drsg is CDI, small folded 2x2 at drain site with small amt of sero-sang shadow drainage. Pt is oriented x 3 & watching TV, reminded to call if he has any concerns/needs. He requests 2100 med pass be somewhere around 10 o'clock. Original Note: Baljeet reported little to no pain at 1600, just now reported pain going up to a 5 or 6 after ambulating to BR and back to bed. Medicated with 1 tab oxycodone & Ibuprofen per his request. Voided 700 ml urine, reports he feels like he is emptying bladder ok. Denies nausea, tolerating regular dinner tonight. BP 98/57 while resting in bed, denies dizziness when moving or ambulating. Skin pale, H&H stable today at 13/39. He remains Ox3, cooperative & using call button appropriately for needs.
[2018-10-22] MEDS: INSULIN GLARGINE 100 UNIT/ML 3ML PEN 19 UNIT SUBCUT (21:58)
[2018-10-23] VITALS (12 sets, daily range): BP systolic 69–123; BP diastolic 37–67; PULSE 80–106; RESP 15–16; TEMP 36.6–36.8; O2SAT 94–98
--- NOTE | 2018-10-23 07:01 | PC.NURSE ---
ASSUMED CARE OF AT 2300 ON 10/23/18. PT AWAKE RESTING IN BED DURING BEDSIDE HAND-OFF. PLEASANT AND COOPERATIVE WITH CARE. POST HIP PRECAUTIONS FOLLOWED. PT AWARE OF PRECAUTIONS. PPP. SCD'S ON. NO IV ACCESS. BED ALARM ON.
--- NOTE | 2018-10-23 07:53 | PM.PNPO.1 ---
Subjective Date Patient Seen: 10/23/18 Time Patient Seen: 07:53 Interval history: Pain 5/10. Denies fever or chills. No nausea vomiting. No shortness of breath or dizziness. Exam Vital Signs (past 8 hours): - 10/23/18 01:00 10/23/18 03:15 Temperature 98.1 F 97.9 F Pulse Rate 80 83 Respiratory Rate 15 16 Blood Pressure 103/57 L 110/50 L Pulse Oximetry 94 96 Oxygen Delivery Method Room Air Oxygen Flow Rate 0 Narrative Exam Narrative: 68-year-old male resting comfortably in bed in no apparent distress. Dariela dressing on and functioning. Dariela dressing is clean dry and intact. Sensation grossly intact to light touch distal left lower extremity. Leg is warm and dry. Motor functions intact. Objective Labs Result Diagrams: 10/22/18 06:25 Assessment & Plan Post-op Postoperative Procedures Operation Date: 10/21/18 14:00 Actual Procedures Side Surgeon p Total Hip Arthroplasty Left Cristina Gooden MD Postoperative day: 2 Postoperative status: doing well Postoperative status narrative: Patient progressing as expected status post left total hip arthroplasty. Patient did have difficulty urinating the other day. Required catheter for urinary retention and was placed on Flomax. Postoperative plan narrative: Hospitalist consulted to help manage his diabetes. Patient will continue physical therapy. Continue posterior hip precautions. Patient does live alone and will [facility] need [facility] until he is strong enough to care for himself at home. Time Spent With Patient less than 15 minutes Quality VTE Deep Vein Thrombosis/Pulmonary Embolism Present on Admission: No
--- NOTE | 2018-10-23 07:59 | P.PN_ITS ---
Subjective Date Patient Seen: 10/23/18 Time Patient Seen: 07:53 Interval history: Pain 5/10. Denies fever or chills. No nausea vomiting. No shortness of breath or dizziness. Exam Vital Signs (past 8 hours): - 10/23/18 01:00 10/23/18 03:15 Temperature 98.1 F 97.9 F Pulse Rate 80 83 Respiratory Rate 15 16 Blood Pressure 103/57 L 110/50 L Pulse Oximetry 94 96 Oxygen Delivery Method Room Air Oxygen Flow Rate 0 Narrative Exam Narrative: 68-year-old male resting comfortably in bed in no apparent d istress. Dariela dressing on and functioning. Dariela dressing is clean dry and intact. Sensation grossly intact to light touch distal left lower extremity. Leg is warm and dry. Motor functions intact. Objective Labs Result Diagrams: 10/22/18 06:25 Assessment & Plan Post-op Postoperative Procedures Operation Date: 10/21/18 14:00 Actual Procedures Side Surgeon p Total Hip Arthroplasty Left Cristina Gooden MD Postoperative day: 2 Postoperative status: doing well Postoperative status narrative: Patient progressing as expected status post left total hip arthroplasty. Patient did have difficulty urinating the other day. Required catheter for urinary retention and was placed on Flomax. Postoperative plan narrative: Hospitalist consulted to help manage his diabetes. Patient will continue physical therapy. Continue posterior hip precautions. Patient does live alone and will likely need to be discharged to [facility] facility until he is strong enough to care for himself at home. Time Spent With Patient less than 15 minutes Quality VTE Deep Vein Thrombosis/Pulmonary Embolism Present on Admission: No
[2018-10-23] MEDS: INSULIN ASPART 100 UNIT/ML INSULN PEN SUBCUT ×2 (08:57→17:02)
[2018-10-23] MEDS: INSULIN ASPART 100 UNIT/ML 10ML VIAL 10 UNIT SUBCUT ×3 (09:00→17:03)
[2018-10-23] MEDS: METFORMIN HCL 500 MG TABLET 1000 MG PO ×2 (09:01→20:11)
[2018-10-23] MEDS: ACETAMINOPHEN 325 MG TABLET 975 MG PO ×3 (09:01→20:11)
[2018-10-23] MEDS: OXYCODONE IR 5 MG TABLET PO ×4 (09:01→20:09)
[2018-10-23] MEDS: DOCUSATE 100 MG CAPSULE PO ×2 (09:02→20:11)
[2018-10-23] MEDS: ASPIRIN EC 81 MG TABLET PO ×2 (09:02→20:11)
[2018-10-23] MEDS: GABAPENTIN 400 MG CAPSULE 800 MG PO ×3 (09:02→20:10)
[2018-10-23] MEDS: MULTIVITAMIN 1 TABLET 1 TAB PO (09:02)
[2018-10-23] MEDS: SODIUM CHLORIDE 0.9% 500 ML 1000 ML IV (11:03)
--- NOTE | 2018-10-23 11:25 | PT.IPTN ---
Current Diagnoses Unilateral primary osteoarthritis, left hip (10/21/18) Surgery Performed Operation Date: 10/21/18 14:00 Actual Procedures p Total Hip Arthroplasty(Left) - Cristina Gooden MD Physical Therapy Treatment Note M2 PT-IP Current Condition Start: 10/22/18 11:04 Freq: NEEDED Status: Active Protocol: Document 10/22/18 09:30 AB (Rec: 10/22/18 11:23 AB [id number]) Physical Therapy Current Condition Current Condition Evaluation Date 10/22/18 Treatment Diagnosis s/p L DINO posterior approach; difficulty in walking Onset Date 10/21/18 Precautions Posterior Hip Precautions No Hip Flexion > 90 degrees No Hip Internal Rotation No Hip Adduction Other Precautions falls Weight Bearing Status Weight Bearing Status Weight Bear as Tolerated M3 PT-IP Subjective Start: 10/22/18 11:04 Freq: NEEDED Status: Active Protocol: Document 10/23/18 11:17 SA (Rec: 10/23/18 11:25 SA [id number]) Subjective Physical Therapy Visit Type Type Treatment Note Visit Start Time 09:53 Visit Stop Time 10:13 Total Visit Minutes 20 Notes Pt up at counter with SEWING MACHINE OPERATOR FLOORPERSON agreeable to PT. Physical Therapy Visit Comments Patient Comments Pt reports pain this AM noting that the nerve block has definatly worn off today. Therapy Pain Assessment Pain When Pain Assessed During Mobility Pain Present Pain Present Pain Reported Location Left Hip Intensity 7 Scale Used Numeric (1 - 10) Pain Management Techniques Apply Cold Re-positioning Timing of Activity with Medications M4 PT-IP Mobility and Gait Start: 10/22/18 11:04 Freq: NEEDED Status: Active Protocol: Document 10/23/18 11:17 SA (Rec: 10/23/18 11:25 SA [id number]) PT-Transfer Assessment Sit to and From Stand Sit to and from Stand Contact Guard Assistance 1 Person Assistance Use of Upper Extremities Equipment Transfer Assistive Device Gait Belt Front Wheeled Walker Orthotic/Prosthetic Devices or Brace: No Transfers Transfer Destination Chair Transfer Technique Stand Step Pivot Transfer Ability Level of Assist Contact Guard Assistance 1 Person Assistance Use of Upper Extremities Comments Mobility Comments Pt able to stand at counter with FWW and CGA to wash face and glasses.CGA with stand pivot txs and min cues for safety and hip precautions. Gait Assessment Gait Gait Assistance Required: Contact Guard Assist 1 Person Assist Distance (Feet) 85 Assistive Devices Assistive Device Gait Belt Front Wheeled Walker Orthotic/Prosthetic Devices or Brace: No Gait Deviations General Gait Pattern Antalgic Decreased Stride Length Decreased Feet Clearance Factors Limiting Gait Function Factors Limiting Gait Function Decreased Activity Tolerance Decreased Strength Limited Range of Motion Pain Poor Balance Poor Safety Awareness Comments Gait Comments Pt able to recall 3/3 hip precautions. Limits WBing through LLE but able to increase stride length and WBing with cues. Uses FWW safely. PT-Balance Assessment Comments Other Balance Tests/Deviations/Treatment Standing balance at sink with : ADLs, no LOB and SBA-CGA. M5 PT-IP Objective Assessments Start: 10/22/18 11:04 Freq: NEEDED Status: Active Protocol: Document 10/22/18 09:30 AB (Rec: 10/22/18 11:23 AB [id number]) Orientation Orientation/Cognition Level of Alertness Alert Orientation Name Age Month Year Place Situation Gross Range of Motion Lower Extremity ROM Assessment Within Functional Limits Strength Lower Extremity Strength Assessment Left Impaired Knee 3+/5 Coordination Assessment Gross Coordination Gross Coordination WNL Sensation Assessment Sensation Gross Sensation WNL Muscle Tone Muscle Tone WNL Yes M6 PT-IP Treatment Start: 10/22/18 11:04 Freq: NEEDED Status: Active Protocol: Document 10/23/18 11:17 SA (Rec: 10/23/18 11:25 [id number]) Physical Therapy Treatment Exercises Exercises Ankle Pumps Gluteal Sets Quad Sets Heel Slides Education Education Provided Precautions Weight Bearing Status Post-Op Packet Safety M7 PT-IP Assessment and Plan Start: 10/22/18 11:04 Freq: NEEDED Status: Active Protocol: Document 10/23/18 11:17 SA (Rec: 10/23/18 11:25 [id number]) PT Summary Assessment and Plan Summary Assessment Summary Pt with c/o pain and stiffness at hip but able to mobilize well with cues for safety. Pt agreeable to SNF at d/c as he lives alone. Frequency of Treatment Frequency Of Treatment Twice a Day Recommendations To Nursing Amount of Assist Needed 1 Person Assist Discharge Recommendations PT Discharge Recommendations SNF Rehab
--- NOTE | 2018-10-23 11:27 | PC.NURSE ---
Addendum entered by Diana Roman R.N. 10/23/18 14:48: VITALS/PAIN/MS - pt ate only small portion of his lunch and preferred to take just 5 units insulin, after meal given 5mg oxcodone for pain 6 on scale 0/10, bette up with phys therapy, bp 123/62. hr 106 mobilized w/fww, ret to dangle position, denies lightheadedness, pain managed with earlier oxycodone. Original Note: Addendum entered by Diana Roman R.N. 10/23/18 11:59: VITALS - after completion 500ml bolus, pt bp maintained low 100's/50's. Original Note: AM NOTE - pt is alert, states slept well during night, pain l hip 6 on scale 0/10 and discussed medications, after breakfast given 5mg po oxycodone and scheduled tylenol for phys therapy, ra 95%, hr reg, bp 90's/50's, held lisinopril this am, cbg 159 and bette ada diet, pascale dsg cdi w/green light flashing, after breakfast up with phys therapy and ambul w/fww into hallway and then ret to chair, was visiting with real estate acquisition analyst and when they left he stated he felt dizzy and his vision was blurry, pt appeared pale and placed him in supine in chair with legs elevated immediately and his bp was 61/38, no loc, as pt did not have an iv, contacted coordinator Hnoey and a 22g was placed and a NS bolus 500ml was started, contacted and she had signed off as otm consultant, Greg LAWSON contacted and advised of bp low bps and the initiation of the bolus, no addl orders rec'd, as pt became pink and his bp improved to low 90's/50's, then assisted upright, no dizziness and pt was able to stand and trans w/fww to bed, enc continue drink fluids.
[2018-10-23] MEDS: IBUPROFEN 600 MG TABLET PO (15:34)
--- NOTE | 2018-10-23 16:46 | PT.IPTN ---
Current Diagnoses Unilateral primary osteoarthritis, left hip (10/21/18) Surgery Performed Operation Date: 10/21/18 14:00 Actual Procedures p Total Hip Arthroplasty(Left) - Cristina Gooden MD Physical Therapy Treatment Note M2 PT-IP Current Condition Start: 10/22/18 11:04 Freq: NEEDED Status: Active Protocol: Document 10/22/18 09:30 AB (Rec: 10/22/18 11:23 AB [id number]) Physical Therapy Current Condition Current Condition Evaluation Date 10/22/18 Treatment Diagnosis s/p L DINO posterior approach; difficulty in walking Onset Date 10/21/18 Precautions Posterior Hip Precautions No Hip Flexion > 90 degrees No Hip Internal Rotation No Hip Adduction Other Precautions falls Weight Bearing Status Weight Bearing Status Weight Bear as Tolerated M3 PT-IP Subjective Start: 10/22/18 11:04 Freq: NEEDED Status: Active Protocol: Document 10/23/18 16:33 SA (Rec: 10/23/18 16:46 SA [id number]) Subjective Physical Therapy Visit Type Type Treatment Note Visit Start Time 14:15 Visit Stop Time 14:40 Total Visit Minutes 25 Notes Pt in bed and agreeable to PT this afternoon. Number of EVENT ORGANIZER Visits 2 Physical Therapy Visit Comments Patient Comments Pt reports having low BP and not feeling well earlier today . Therapy Pain Assessment Pain When Pain Assessed During Mobility Pain Present Pain Present Pain Reported Location Left Hip Intensity 6 Scale Used Numeric (1 - 10) Pain Management Techniques Apply Cold Re-positioning Timing of Activity with Medications M4 PT-IP Mobility and Gait Start: 10/22/18 11:04 Freq: NEEDED Status: Active Protocol: Document 10/23/18 16:33 SA (Rec: 10/23/18 16:46 SA [id number]) PT-Bed Mobility Assessment Rolling Type of Rolling Roll to Right Level of Assist Contact Guard Assistance Supine to Sit Supine to Sit Contact Guard Assistance Sit to Supine Sit to Supine Standby Assistance Scooting Scooting to Edge of Bed Standby Assistance PT-Transfer Assessment Sit to and From Stand Sit to and from Stand Contact Guard Assistance 1 Person Assistance Use of Upper Extremities Equipment Transfer Assistive Device Gait Belt Front Wheeled Walker Orthotic/Prosthetic Devices or Brace: No Transfers Transfer Destination Bed Transfer Technique Stand Step Pivot Transfer Ability Level of Assist Contact Guard Assistance 1 Person Assistance Use of Upper Extremities Comments Mobility Comments Education and practice of getting OOB on R side without breaking hip preacutions, pt able to complete with CGA and segmental movements, Mod cues. Stand pivot txs with CGA. Gait Assessment Gait Gait Assistance Required: Contact Guard Assist 1 Person Assist Distance (Feet) 80 Assistive Devices Assistive Device Gait Belt Front Wheeled Walker Orthotic/Prosthetic Devices or Brace: No Gait Deviations General Gait Pattern Antalgic Decreased Stride Length Decreased Feet Clearance Factors Limiting Gait Function Factors Limiting Gait Function Decreased Activity Tolerance Decreased Strength Limited Range of Motion Pain Poor Balance Poor Safety Awareness Comments Gait Comments BP 123/62 seate at EOB prior to ambulation. Gait training in room with FWW and CGA, frequent turns and demonsrated safe use of FWW. PT-Balance Assessment Comments Other Balance Tests/Deviations/Treatment Standing static/dynamic balance : training at window, lateral stepping and weight shifting with no LOB. M5 PT-IP Objective Assessments Start: 10/22/18 11:04 Freq: NEEDED Status: Active Protocol: Document 10/22/18 09:30 AB (Rec: 10/22/18 11:23 AB [id number]) Orientation Orientation/Cognition Level of Alertness Alert Orientation Name Age Month Year Place Situation Gross Range of Motion Lower Extremity ROM Assessment Within Functional Limits Strength Lower Extremity Strength Assessment Left Impaired Knee 3+/5 Coordination Assessment Gross Coordination Gross Coordination WNL Sensation Assessment Sensation Gross Sensation WNL Muscle Tone Muscle Tone WNL Yes M6 PT-IP Treatment Start: 10/22/18 11:04 Freq: NEEDED Status: Active Protocol: Document 10/23/18 16:33 SA (Rec: 10/23/18 16:46 [id number]) Physical Therapy Treatment Exercises Exercises Ankle Pumps Gluteal Sets Quad Sets Heel Slides Education Education Provided Precautions Weight Bearing Status Post-Op Packet Safety M7 PT-IP Assessment and Plan Start: 10/22/18 11:04 Freq: NEEDED Status: Active Protocol: Document 10/23/18 16:33 SA (Rec: 10/23/18 16:46 [id number]) PT Summary Assessment and Plan Summary Assessment Summary Pt with improving pain management, CGA with most mobility tasks and pt able to recall hip precautions but needs some cues for safety. Goals Days to Meet Goals 5 Frequency of Treatment Frequency Of Treatment Twice a Day Recommendations To Nursing Amount of Assist Needed 1 Person Assist Discharge Recommendations PT Discharge Recommendations SNF Rehab
[2018-10-23] MEDS: ZONISAMIDE 100 MG CAPSULE PO (20:10)
[2018-10-23] MEDS: AMITRIPTYLINE 25 MG TABLET 100 MG PO (20:10)
[2018-10-23] MEDS: ATORVASTATIN 20 MG TABLET PO (20:11)
[2018-10-23] MEDS: INSULIN GLARGINE 100 UNIT/ML 3ML PEN 19 UNIT SUBCUT (21:11)
--- NOTE | 2018-10-24 01:50 | PC.NURSE ---
Textile Knitter Note: 0000: Awake, resting in bed. Vital signs stable. No IV access. Dressing to lt hip CDI, and Dariela drain intact. Pt states he is comfortable.
[2018-10-24 02:28] VITALS: BP 113/60; PULSE 70; RESP 20; TEMP 36.6; O2SAT 94
[2018-10-24 06:01] VITALS: BP 133/70; PULSE 94; RESP 16; TEMP 36.8; O2SAT 97
[2018-10-24] MEDS: OXYCODONE IR 5 MG TABLET PO ×2 (06:58→10:56)
[2018-10-24 08:00] VITALS: BP 126/67; PULSE 90; RESP 18; TEMP 36.6; O2SAT 97
--- NOTE | 2018-10-24 08:12 | P.DS_ITS ---
History of Present Illness Date Patient Seen: 10/24/18 Time Patient Seen: 08:07 Chief complaint: left hip [id number] Narrative: Hospital day 4, postop day 3 following left total hip arthroplasty by Dr. Gooden. Patient remained stable orthopedically. He has had some episodes of hypotension. He did have 1 episode yesterday morning of hypotension with systolic pressure in the 60s and visual disturbance while sitting up. He was given IV bolus which seemed to help. No further problem during the day. He has been up ambulating with physical therapy and also ambulating to the bathroom without difficulty. PT does recommend SNF as patient lives alone and still needs some assist. Discharge Providers Date of admission: 10/21/18 11:56 Primary care physician: Eusebia Tabares MD Consults: 10/08/18 13:18 Consult to Anesthesiology Routine Comment: Consulting Provider: Anesthesiologist Reason for consultation: Surgeon requested re: Diabetes Consult to Pastoral Services Routine Comment: LT DINO 10/21/18 10/21/18 06:00 Consult to Anesthesiology Routine Comment: Consulting Provider: Anesthesiologist Reason for consultation: Regional block for post operative pain control 10/21/18 16:30 Consult to Discharge Planning Routine Comment: Consult to Physical Therapy Evaluate & Treat Comment: Physician Instructions: post op DINO protocol Consult to Respiratory Therapy Evaluate & Treat Comment: Physician Instructions: Evaluate and treat 10/21/18 18:20 Consult to Pastoral Services Routine Comment: requests visit from inhouse morgue attendant Discharge provider: Alvino Lock PA-C Discharge Date: 10/24/18 Summary Discharge Diagnosis: Status post left total hip arthroplasty Hospital Course: Patient brought to hospital on 10/21/2018 for above noted surgery. He remained stable postoperatively. Did have some hypertensive episodes. Slowly progressed with PT but still needing cyst. Patient lives alone. Patient discharged to [facility] for further rehab before going home. Status at Discharge Cognitive/behavioral status at discharge: Alert, oriented no acute distress. Functional status at discharge: uses cane/walker Overall status at discharge: patient is progressing back to baseline Time Spent with Patient Less than 30 minutes Exam Vital Signs (past 8 hours): - 10/24/18 02:28 10/24/18 06:01 Temperature 98 F 98.3 F Pulse Rate 70 94 H Respiratory Rate 20 16 Blood Pressure 113/60 133/70 Pulse Oximetry 94 97 Oxygen Delivery Method Room Air Oxygen Flow Rate 0 Narrative Exam Narrative: Left leg. Pascale dressing intact with good vacuum. No drainage or inflammation. No calf pain or swelling. Pulses symmetrical. Objective Labs Result Diagrams: 10/22/18 06:25 Discharge Plan Discharge Plan Patient Disposition: SNF Transfer to: [facility] Under care of provider: Facility provider or PCP Transportation: Facility vehicle Discharge comment: Keep pascale dressing intact until postop visit. I certify the postop hospital senior living care is medically necessary on a continuing basis for any conditions for which he/ she received care during this hospitalization.: Yes The receiving facility has agreed to accept transfer and provide medical treatment.: Yes Discharge Med Rec/Prescriptions Prescriptions: New acetaminophen 325 mg Tablet 975 mg PO TID Qty: 60 RF: 0 aspirin 81 mg Tablet,Delayed Release (Dr/Ec) 81 mg PO BID Qty: 60 RF: 0 docusate sodium 100 mg Capsule 100 mg PO BID Qty: 30 RF: 0 ibuprofen 600 mg Tablet 600 mg PO Q6HR PRN (Reason: Pain, Mild (1-3)) Qty: 60 RF: 0 oxycodone 5 mg Tablet 5 mg PO Q3HR PRN (Reason: Pain, Moderate (4-6)) Qty: 30 RF: 0 Continued metformin 1,000 mg Tablet 1,000 mg PO BID Qty: 0 RF: 0 gabapentin [Neurontin] 600 MG tablet 800 mg PO TID Qty: 0 RF: 0 insulin glargine [Lantus U-100 Insulin] 100 unit/mL Solution 18 unit SUBCUT BEDTIME Qty: 0 RF: 0 atorvastatin 20 mg Tablet 20 mg PO BEDTIME Qty: 0 RF: 0 lisinopril 20 mg Tablet 20 mg PO DAILY Qty: 0 RF: 0 amitriptyline 100 mg Tablet 100 mg PO BEDTIME Qty: 0 RF: 0 magnesium oxide 250 MG tablet 250 mg PO BID Qty: 0 RF: 0 multivitamin [Multiple Vitamins] 1 EACH tablet 1 tab PO QDAY Qty: 0 RF: 0 zonisamide 100 MG capsule 100 mg PO BEDTIME Qty: 0 RF: 0 insulin aspart U-100 [Novolog U-100 Insulin aspart] 100 unit/mL Solution 10 - 15 unit SUBCUT TID RF: 0 ranitidine HCl 75 mg Tablet 75 mg PO DAILY PRN (Reason: Reflux symptoms) RF: 0 dicyclomine 10 mg Capsule 10 mg PO PRN PRN (Reason: Cramps) RF: 0 metformin 1,000 mg 1,000 mg BID RF: 0 zonisamide 100 mg 100 mg DAILY RF: 0 Discontinued aspirin 81 MG tablet,chewable 81 mg PO QDAY Qty: 0 RF: 0 acetaminophen [Tylenol Extra Strength] 500 mg Tablet 1,000 mg PO Q6H PRN (Reason: Pain) RF: 0 Follow up/Referrals: Eusebia Tabares MD [Primary Care Provider] - Discharge Health Status Brief summary of current health status: Status post left total hip arthroplasty. Patient is diabetic. Multidrug resistant organism: No MDRO Provider Discharge Instructions Diet: Diet as Tolerated Liquid consistency: Normal/Thin Food texture: Regular Activity: Ambulate as tolerated using walker. Skin/Wound/Dressing Care Report to your healthcare provider any signs of infection, such as:: chills, fever, night sweats, increased pain, unusual drainage and unusual redness Dressing: Keep pascale dressing in place until postop visit. [facility] Reason for rehabilitation: Post-operative therapy Rehab type: Physical therapy and Occupational therapy Restrictions to mobility: Total hip precautions x6 weeks postop Discharge Data Primary Care Provider: Eusebia Tabares Attending Provider: Cristina Gooden Admit Date/Time: 10/21/18 11:56 Quality VTE Deep Vein Thrombosis/Pulmonary Embolism Present on Admission: No
[2018-10-24] MEDS: ACETAMINOPHEN 325 MG TABLET 975 MG PO (08:30)
[2018-10-24] MEDS: POLYETHYLENE GLYCOL 3350 17 GM POWD.PACK PO (08:31)
[2018-10-24] MEDS: ASPIRIN EC 81 MG TABLET PO (08:32)
[2018-10-24] MEDS: GABAPENTIN 400 MG CAPSULE 800 MG PO (08:32)
[2018-10-24] MEDS: MULTIVITAMIN 1 TABLET 1 TAB PO (08:32)
[2018-10-24] MEDS: DOCUSATE 100 MG CAPSULE PO (08:32)
[2018-10-24] MEDS: METFORMIN HCL 500 MG TABLET 1000 MG PO (08:32)
[2018-10-24] MEDS: INSULIN ASPART 100 UNIT/ML 10ML VIAL 10 UNIT SUBCUT (08:33)
--- NOTE | 2018-10-24 09:46 | PT.IPTN ---
Current Diagnoses Unilateral primary osteoarthritis, left hip (10/21/18) Surgery Performed Operation Date: 10/21/18 14:00 Actual Procedures p Total Hip Arthroplasty(Left) - Cristina Gooden MD Physical Therapy Treatment Note M2 PT-IP Current Condition Start: 10/22/18 11:04 Freq: NEEDED Status: Active Protocol: Document 10/22/18 09:30 AB (Rec: 10/22/18 11:23 AB [id number]) Physical Therapy Current Condition Current Condition Evaluation Date 10/22/18 Treatment Diagnosis s/p L DINO posterior approach; difficulty in walking Onset Date 10/21/18 Precautions Posterior Hip Precautions No Hip Flexion > 90 degrees No Hip Internal Rotation No Hip Adduction Other Precautions falls Weight Bearing Status Weight Bearing Status Weight Bear as Tolerated M3 PT-IP Subjective Start: 10/22/18 11:04 Freq: NEEDED Status: Active Protocol: Document 10/24/18 09:33 SA (Rec: 10/24/18 09:46 SA [id number]) Subjective Physical Therapy Visit Type Type Treatment Note Visit Start Time 08:46 Visit Stop Time 09:10 Total Visit Minutes 24 Notes Pt just had morning medications and available for PT Number of RESAW OPERATOR Visits 3 Physical Therapy Visit Comments Patient Comments BP WNLs this AM, pt denies feeling dizzy. Patient Goals To d/c to [facility] for continued tharapy prior to returning home [place]. Therapy Pain Assessment Pain When Pain Assessed During Mobility Pain Present Pain Present Pain Reported Location Left Hip Intensity 5 Scale Used Numeric (1 - 10) Pain Management Techniques Apply Cold Re-positioning Timing of Activity with Medications M4 PT-IP Mobility and Gait Start: 10/22/18 11:04 Freq: NEEDED Status: Active Protocol: Document 10/24/18 09:33 SA (Rec: 10/24/18 09:46 SA [id number]) PT-Bed Mobility Assessment Supine to Sit Supine to Sit Contact Guard Assistance Sit to Supine Sit to Supine Standby Assistance PT-Transfer Assessment Sit to and From Stand Sit to and from Stand Contact Guard Assistance Equipment Transfer Assistive Device Gait Belt Front Wheeled Walker Orthotic/Prosthetic Devices or Brace: No Transfers Transfer Destination Chair Transfer Technique Stand Step Pivot Transfer Ability Level of Assist Standby Assistance 1 Person Assistance Comments Mobility Comments Pt able to recall 3/3 hip precautions and explain movements he is to avoid. SBA- CGA with mobility tasks, cues for safety. Pt gaurded and with slow movements. Gait Assessment Gait Gait Assistance Required: Contact Guard Assist 1 Person Assist Distance (Feet) 100 Assistive Devices Assistive Device Gait Belt Front Wheeled Walker Orthotic/Prosthetic Devices or Brace: No Gait Deviations General Gait Pattern Antalgic Decreased Stride Length Decreased Feet Clearance Factors Limiting Gait Function Factors Limiting Gait Function Decreased Activity Tolerance Decreased Strength Limited Range of Motion Pain Poor Balance Poor Safety Awareness Comments Gait Comments Pt limiting WBing through LLE, needs cues to increase Wbing and stride length. Improving gait tolerance. PT-Balance Assessment Comments Other Balance Tests/Deviations/Treatment PT stood at sink to wash face, : hands and clean glasses with SBA and lateral stepping and UE reaching, no LOB. M5 PT-IP Objective Assessments Start: 10/22/18 11:04 Freq: NEEDED Status: Active Protocol: Document 10/22/18 09:30 AB (Rec: 10/22/18 11:23 AB [id number]) Orientation Orientation/Cognition Level of Alertness Alert Orientation Name Age Month Year Place Situation Gross Range of Motion Lower Extremity ROM Assessment Within Functional Limits Strength Lower Extremity Strength Assessment Left Impaired Knee 3+/5 Coordination Assessment Gross Coordination Gross Coordination WNL Sensation Assessment Sensation Gross Sensation WNL Muscle Tone Muscle Tone WNL Yes M6 PT-IP Treatment Start: 10/22/18 11:04 Freq: NEEDED Status: Active Protocol: Document 10/24/18 09:33 SA (Rec: 10/24/18 09:46 [id number]) Physical Therapy Treatment Exercises Exercises Ankle Pumps Gluteal Sets Quad Sets Heel Slides Education Education Provided Precautions Weight Bearing Status Post-Op Packet Safety M7 PT-IP Assessment and Plan Start: 10/22/18 11:04 Freq: NEEDED Status: Active Protocol: Document 10/24/18 09:33 SA (Rec: 10/24/18 09:46 [id number]) PT Summary Assessment and Plan Summary Progress Towards Goals Progressing Toward Goals Assessment Summary Pt ready for d/c to SNF to continue with strength and balance training prior to d/c home. Frequency of Treatment Frequency Of Treatment Twice a Day Recommendations To Nursing Amount of Assist Needed 1 Person Assist Discharge Recommendations PT Discharge Recommendations SNF Rehab
--- NOTE | 2018-10-24 10:05 | PC.NURSE ---
Addendum entered by Diana Roman R.N. 10/24/18 11:19: TSF - prior to transfer, pt SL dc'd, given 5mg po oxycodone w/pudding for l hip discomfort 4 on scale 0/10, belongings gathered, including clothing, shoes, glasses, cell phone and bellows charger assembler, own fww and cane, [facility] staff arrived and assisted to and packet provided with script, report called to Destiny irby RN. Original Note: AM NOTE - awakened for breakfast, states earlier oxycodone helped relieve l hip discomfort I should have asked for it earlier, states discomfort 4 on scale 0/10, pascale dsg cdi, green light flashing, hr 96, ra 98%, reports no symptoms of dizziness when up to dangle, bp this am 126/67, will hold today's lisinopril again, later am up w/fww, ambul w/phys therapy and ret to chair w/o lightheadedness, discussed constipation and narcotics and added miralax this am.
--- NOTE | 2018-10-24 14:24 | CM.DPNOTE ---
DC Note: DC order for SNF done by Dr Mendez, to [facility]. Pt remains aware and agreeable to DCP. IMM reviewed and signed by pt. TC placed to Destiny at [facility], completed and signed DC ppk faxed to [facility] and cabulance arranged for 1130 p/u time. Alerted pt and ROLAND Ortiz. P: DC to [facility] today via cabulance. DHAVAL Waller
== END 2018-10-24 11:22 | DRG 470 ==
PROVIDERS: Admitting Provider Orthopaedic Surgery; PCP Family Medicine; Visit Provider Orthopaedic Surgery
PROC: 0SRB0JZ Replacement of Left Hip Joint with Synthetic Substitute, Open Approach (ICD-10-PCS; CPT 27130; principal; 2018-10-21 14:00)
DX: M16.12 Unilateral primary osteoarthritis, left hip (principal); E11.9 Type 2 diabetes mellitus without complications; E78.5 Hyperlipidemia, unspecified; I10 Essential (primary) hypertension; Z97.4 Presence of external hearing-aid; K21.9 Gastro-esophageal reflux disease without esophagitis; R39.198 Other difficulties with micturition
CPT/HCPCS: 36415; 36592; 72170; 73502; 82962; 85014; 85018; 94762; 97116; 97161; 97530; C1776; J0690; J2250; J2274; J2405; J2704; J3370

== ENCOUNTER → 2019-05-02 14:21 | Outpatient (CLI) | payer MEDICARE, OTHER, SELFPAY ==
[2018-10-21 18:11] VITALS: BMI 30.6
--- NOTE | 2019-05-02 | DI.RAD.S_ITS ---
PROCEDURE: XR HIP W PEL IF DONE RT 2V INDICATIONS: RT HIP DEGENERATIVE LOCALIZED ARTHRITIS OF HIP TECHNIQUE: AP pelvis with lateral view(s) of the right hip. [facility] 15[facility]48[facility], 10:16. FINDINGS: Bones: No fractures or dislocations. Pelvic ring appears intact. No suspicious bony lesions. Soft tissues: The visualized bowel gas pattern is normal. No suspicious soft tissue calcifications. IMPRESSION: Moderately severe right hip joint degenerative osteoarthritic change, prior right total hip arthroplasty. Dictated by: Jann Naidu M.D. on 05/02/2019 at 15:41 Approved by: Jann Naidu M.D. on 05/02/2019 at 15:42
== END ==
PROVIDERS: PCP Family Medicine; Visit Provider Family Medicine
DX: M16.11 Unilateral primary osteoarthritis, right hip (principal); Z96.641 Presence of right artificial hip joint
CPT/HCPCS: 73502

== ENCOUNTER → 2020-12-07 13:10 | Outpatient (CLI) | payer MEDICARE, OTHER, SELFPAY ==
[2018-10-21 18:11] VITALS: BMI 30.6
[2020-12-07] MEDS: COVID-19 VACC #1, MRNA(MOD) 100 MCG/0.5 ML VIAL IM (13:26)
== END ==
PROVIDERS: PCP Family Medicine; Visit Provider Internal Medicine
DX: Z23 Encounter for immunization (principal)
CPT/HCPCS: 0011A; 91301

== ENCOUNTER → 2021-01-05 13:34 | Outpatient (CLI) | payer MEDICARE, OTHER, SELFPAY ==
[2018-10-21 18:11] VITALS: BMI 30.6
[2021-01-05] MEDS: COVID-19 VACC #2, MRNA(MOD) 100 MCG/0.5 ML VIAL IM (13:48)
== END ==
PROVIDERS: PCP Family Medicine; Visit Provider Internal Medicine
DX: Z23 Encounter for immunization (principal)
CPT/HCPCS: 0012A; 91301

== ENCOUNTER → 2023-05-31 14:06 | Outpatient (CLI) | payer MEDICARE, OTHER, SELFPAY ==
[2018-10-21 18:11] VITALS: BMI 30.6
[2023-05-31 14:41] LABS: Add Manual Diff / Slide Review NO; Basophils Absolute Auto 0 /uL (0-100); Basophils Percent Auto 0.4 % (0-2); Eosinophils Absolute Auto 200 /uL (0-450); Eosinophils Percent Auto 2.1 % (2-4); Hematocrit 45.3 % (41-53); Hemoglobin 15.6 g/dL (13.5-17.5); Lymphocytes Absolute Auto 2400 /uL (1100-4500); Lymphocytes Percent Auto 26.1 % (25-40); Mean Corpuscular HGB Conc 34.4 % (30-36); Mean Corpuscular Hemoglobin 33.4 PG (26-34); Mean Corpuscular Volume 97.2 fL (80-100); Monocytes Absolute Auto 600 /uL (0-900); Monocytes Percent Auto 6.2 % (3-14); Neutrophils Absolute Auto 6100 /uL (1500-7000); Neutrophils Percent Auto 65.2 % (50-75); Platelet Count 308 X10^3/uL (150-400); Red Blood Cell Count 4.66 X10^6/uL (4.5-5.9); White Blood Cell Count 9.3 X10^3/uL (4.5-11.0)
[2023-05-31 14:43] LABS: Hemoglobin A1C% w Est Avg Glu 7.3 % (4.0-6.0)
[2023-05-31 14:44] LABS: Appearance Urine UA SL CLOUDY; Bilirubin Urine UA NEGATIVE (NEGATIVE); Color Urine UA YELLOW; Glucose Urine UA 3+ g/dL (Negative); Ketones Urine UA NEGATIVE (NEGATIVE); Leukocyte Esterase Urine UA 2+ (NEGATIVE); Nitrite Urine UA POSITIVE (Negative); Occult Blood Urine UA 1+ (Negative); Protein Urine UA NEGATIVE (Negative); Urobilinogen Urine UA 0.2 E.U./dL (0.2)
[2023-05-31 14:50] LABS: BUN Creatinine Ratio 16.9 (6-22); Blood Urea Nitrogen 12 mg/dL (9-20); Calcium 9.5 mg/dL (8.4-10.2); Carbon Dioxide 22 mmol/L (22-32); Chloride 100 mmol/L (98-107); Estimated Glomerular Filt Rate > 60 mL/min (>60); Glucose 213 mg/dL (80-110); HEMOLYSIS < 15 (0-50); Potassium 4.2 mmol/L (3.4-5.1); Sodium 134 mmol/L (137-145)
[2023-05-31 15:01] LABS: Bacteria Urine Moderate (10-30); Culture Indicated Urine Specimen Cultured; RBC Urine 1-5/HPF (0-5/HPF); Squamous Epithelial Cell Urine 1-5 /HPF (0-5/HPF); WBC Urine 30-100/HPF (0-5/HPF)
== END ==
PROVIDERS: PCP Family Medicine; Referring Provider Orthopaedic Surgery; Visit Provider Orthopaedic Surgery
DX: Z01.818 Encounter for other preprocedural examination (principal); R73.9 Hyperglycemia, unspecified; Z01.812 Encounter for preprocedural laboratory examination; N39.0 Urinary tract infection, site not specified
CPT/HCPCS: 80048; 81001; 83036; 85025; 87086; 93005; 93010

== ENCOUNTER → 2024-01-21 14:16 | Outpatient (CLI) | payer MEDICARE, OTHER, SELFPAY ==
[2018-10-21 18:11] VITALS: BMI 30.6
--- NOTE | 2024-01-21 14:27 | DI.RAD.S_ITS ---
PROCEDURE: XR CERVICAL SPINE 2V OR 3V INDICATIONS: CERVICAL SPINE SYNDROME TECHNIQUE: 3 view(s) of the cervical spine were acquired. COMPARISON: None. FINDINGS: Bones: No fractures or dislocations to the C7 level. The lateral masses of C1 appear intact on the odontoid view. No suspicious bony lesions. Mild disc height loss at C3-4, C4-5, C5-6 and C6-7. Fixed flexion of the cervical spine. Mild, multilevel facet arthrosis, most prominent at C5-6. Soft tissues: No prevertebral soft tissue swelling. IMPRESSION: Fixed flexion of the cervical spine. Mild, multilevel degenerative disc disease. Dictated by: Cash Chung M.D. on 01/21/2024 at 15:45 Approved by: Cash Chung M.D. on 01/21/2024 at 15:46
== END ==
PROVIDERS: PCP Family Medicine; Referring Provider Family Medicine; Visit Provider Family Medicine
DX: M50.31 Other cervical disc degeneration, high cervical region (principal); M47.812 Spondylosis without myelopathy or radiculopathy, cervical region
CPT/HCPCS: 72040

== ENCOUNTER 2024-03-13 15:15 | Outpatient (RCR) | payer MEDICARE, OTHER, SELFPAY ==
[2018-10-21 18:11] VITALS: BMI 30.6
--- NOTE | 2024-02-12 17:10 | PT.OPPOC ---
Physical, Occupational & Speech Therapy At [facility] Current Diagnoses Cervical root disorders, not elsewhere classified (02/12/24) Abnormal posture (02/12/24) Weakness (02/12/24) Visit Care Team Role Provider Type Eusebia Tabares MD Attending Provider Non-Staff Family Provider Primary Care Provider Referring Provider Specialty: Medical Address: [address] [place] [address], [id number] Email: Plan Of Care PT-OP-T Assessment and Plan Start: 02/07/24 18:13 Freq: Status: Active Protocol: Document 02/12/24 15:19 [facility] (Rec: 02/12/24 16:08 [facility] [id number]) Physical Therapy Assessment Rehab Potential Rehabilitation Potential Good Evaluation Complexity Number of Personal Factors/Comorbidities 3 or More Number of Body Systems Impaired 4 or More Clinical Presentation at Evaluation Evolving Impairments Impairments Activity Tolerance,Functional Activities,Functional Mobility ,Pain,Posture,ROM,Strength Goals ROM Short Term Goal (STG) Pt will improve rot to at least 40 deg STG Duration 03/28 Impact Retail Service Merchandiser Goal (LTG) Pt will be able to have enough trunk and cervical ROM in order to feel ease for driving to keep head up and turn for backing up. LTG Duration 05/06 activities Short Term Goal (STG) Pt will be able to hold neck up long enough to shave STG Duration 03/18 Impact Retail Service Merchandiser Goal (LTG) Pt will be able to hold head up for entire day w/o inc discomfort LTG Duration 05/06 neck stability Impact Retail Service Merchandiser Goal (LTG) Pt will be able to score at least 4/5 on all directions of cervical MMT in sitting LTG Duration 05/06 Assessment Summary Assessment Pt presents w/recent suddent dec in neck strength and mobility w/soreness. He had COVID about 2.5 months ago, and after had inc difficulty keeping his head up. He now sits w/chin to chest as it is difficult to lift it up. he has no concerning arterial testing, but does show significant postural flex of cervical spine w/contralat rot /SB. He is unable to get neck in fully upright position at this time and mostly feels weak. When he does lift head up, he is unable to keep it up for longer than a couple seconds at a time. He would benefit from skilled PT in order to improve ability to keep neck more upright and do daily activities like driving and shaving w/o discomfort or weakness. Physical Therapy Plan Frequency and Duration Frequency of Treatment 2x/Week Duration of treatment (weeks) 12 Plan of Care Start Date 02/12/24 Plan of Care End Date 05/06/24 Therapeutic Interventions Therapeutic Interventions Balance Training,Gait Training ,Home Exercise Program,Joint Mobilizations,Manual Therapy, Neuromuscular Re-education, Patient/Caregiver Education, Self-Care/Home Management,Soft Tissue Mobilization,Taping, Therapeutic Activities, Therapeutic Exercises Modalities Cold Pack/Ice Massage,Electric Stimulation,Hot Packs, Traction- Mechanical, Ultrasound Next Visit Focus/Plan Next Note Type Treatment Note Next Visit Plan supine neck isometrics, supine HAbd & ER, gentle manual to cervical mm and thoracic and tspine jt mobs Plan of Care Dates Plan of Care Start Date 02/12/24 Plan of Care End Date 05/06/24 Electronically Signed by: Magdalena Mahmood, PT 02/13/24 0810 If you are in agreement with this Plan of Care, please return a signed and dated copy. I have reviewed this Plan of Care and certify that the skilled therapy services above are required to meet the patient?s needs. Physician Signature Date Printed Name and Credentials Clinical Instructor Signature Printed Name and Credentials
--- NOTE | 2024-02-12 18:09 | PT.OIE ---
Current Diagnoses Cervical root disorders, not elsewhere classified (02/12/24) Abnormal posture (02/12/24) Weakness (02/12/24) Past Medical History (Last Updated 03/28/23 @ 10:14 by Shamika Macias RN) Acid reflux Chronic neck and back pain Constipation Diabetes DJD (degenerative joint disease) Edema HTN (hypertension) Hyperlipidemia IBS (irritable bowel syndrome) Migraine Neuropathy Uses self-applied continuous glucose monitoring device Past Surgical History (Last Updated 03/28/23 @ 09:43 by Shamika Macias RN) History of colonoscopy History of total left hip replacement (10/21/18) Hx of shoulder surgery Hx of tonsillectomy Visit Care Team Role Provider Type Eusebia Tabares MD Attending Provider Non-Staff Family Provider Primary Care Provider Referring Provider Specialty: Medical Address: [address] [place] [address], [id number] Email: Physical Therapy Initial Evaluation PT-OP-A Visit Information Start: 02/07/24 18:13 Freq: Status: Active Protocol: Document 02/12/24 15:19 [facility] (Rec: 02/12/24 16:08 [facility] [id number]) Out-Patient Physical Therapy Visit Information Visit Information Visit Type Initial Evaluation Visit Note 09/26 Student PT Arthur Delaney participated in treatment session w/PT direct supervision and direction Visit Start Time 15:20 Visit Stop Time 16:00 Visit Number 1 Number of EMERGENCY DEPARTMENT AIDE Visits 0 PT-OP-B Current Condition Start: 02/07/24 18:13 Freq: Status: Active Protocol: Document 02/12/24 15:19 [facility] (Rec: 02/12/24 16:08 [facility] [id number]) Current Condition History of Current Condition Onset Date 2.5 months Current Complaints neck pain/weakness History of Current Condition Pt feels like neck issue has been going on for a while. He had COVID about 2.5 months ago and after that, he really started noticing it harder to look up w/his neck. His brother and sister recently saw him and noticed the difference than when they had seen him about 6 months ago. It is hard to look over shoulder when driving and look up in the store for example. It feels like pulling or tightness when lokoing up more on R. Pt reports for a long time, has some hand/thumb pain but that has been 10 years and uses a brace on the computre that helps. Doesn't feel like it is related. Prior to covid did notice some difficulty turning head for backing up but nothing like this. denies lightheadness, dizziness or MCKEON. Had migranes until 3 years ago. Prior Treatments and Tests IMPRESSION: Fixed flexion of the cervical spine. Mild, multilevel degenerative disc disease. Treatment Goals Patient/Caregiver Goals Be able hold head up normally, be able to drive easier, be able to shave his deal w/o using hand to hold up head PT-OP-C Subjective Start: 02/07/24 18:13 Freq: Status: Active Protocol: Document 02/12/24 15:19 [facility] (Rec: 02/12/24 16:08 [facility] [id number]) Patient Questionnaires Neck Disability Index NDI Score 12/50; 24% OP-PT Pain Assessment Location neck pain Pain Location Details R sided more Description Tightness,Tingling Description- Other weak Frequency Frequent Radiating Location post R shoulder Other Pain Aggravating Factors lifting up head, turning head, end of day Pain Alleviating Factors Cold,Medication PT-OP-F Manual Assessment Start: 02/07/24 18:13 Freq: Status: Active Protocol: Document 02/12/24 15:19 [facility] (Rec: 02/12/24 16:08 [facility] [id number]) Manual Assessments Soft Tissue Assessment Soft Tissue Mobility Assessment tightness of cervical mm PT-OP-J Posture/Palpation/Skin Start: 02/07/24 18:13 Freq: Status: Active Protocol: Document 02/12/24 15:19 [facility] (Rec: 02/12/24 16:08 [facility] [id number]) Posture Evaluation Comments Posture Comments flexed, R SB, L rot of neck; L scap slightly higher PT-OP-K Range of Motion Start: 02/07/24 18:13 Freq: Status: Active Protocol: Document 02/12/24 15:19 [facility] (Rec: 02/12/24 16:08 [facility] [id number]) Cervical Spine Range of Motion Cervical Spine Active Degrees Extension 25 Rotation Left 23 Rotation Right 21 Lateral Flexion Left 25 Lateral Flexion Right 23 Comments thoracic rotation L:17deg R:17 deg; flex (chin to chest-pt rests in this position);ext measureed from fully flexed position and how much pt can get towards neutral-unable to get fully neutral, SB measured w/pt in flex PT-OP-L Special Tests Start: 02/07/24 18:13 Freq: Status: Active Protocol: Document 02/12/24 15:19 [facility] (Rec: 02/12/24 16:08 [facility] [id number]) Special Tests Cervical Spine Special Tests pec flexibility Test Results R>L limit BP Comments 145/78 arterial screening Test Results carotid and heart ausciltation WNL; position testing w/o inc symptoms Comments cranial n screen wnl except minor dec hearing& saccades min w/smoothpursuit Traction Test Results relief Spurling's Test Test Results neg PT-OP-Q Treatments Start: 02/07/24 18:13 Freq: Status: Active Protocol: Document 02/12/24 15:19 [facility] (Rec: 02/13/24 07:55 [facility] [id number]) Self-Care/Home Management Treatment Education Other Education 8 min: discussed how occ viruses can cause other senior care affects, COVID being a commonly known one. edu how posture was likely dec prior, but showed pt that his R shoulder is tighter and upper thoracic is tight which causes some of his posture. demonstrated limited upper cervical flex and lower cervical ext PT-OP-T Assessment and Plan Start: 02/07/24 18:13 Freq: Status: Active Protocol: Document 02/12/24 15:19 [facility] (Rec: 02/12/24 16:08 [facility] [id number]) Physical Therapy Assessment Rehab Potential Rehabilitation Potential Good Evaluation Complexity Number of Personal Factors/Comorbidities 3 or More Number of Body Systems Impaired 4 or More Clinical Presentation at Evaluation Evolving Impairments Impairments Activity Tolerance,Functional Activities,Functional Mobility ,Pain,Posture,ROM,Strength Goals ROM Short Term Goal (STG) Pt will improve rot to at least 40 deg STG Duration 7/12 Jail Goal (LTG) Pt will be able to have enough trunk and cervical ROM in order to feel ease for driving to keep head up and turn for backing up. LTG Duration 8/20 activities Short Term Goal (STG) Pt will be able to hold neck up long enough to shave STG Duration 7/2 Jail Goal (LTG) Pt will be able to hold head up for entire day w/o inc discomfort LTG Duration 820 neck stability Jail Goal (LTG) Pt will be able to score at least 4/5 on all directions of cervical MMT in sitting LTG Duration 05/06 Assessment Summary Assessment Pt presents w/recent suddent dec in neck strength and mobility w/soreness. He had COVID about 2.5 months ago, and after had inc difficulty keeping his head up. He now sits w/chin to chest as it is difficult to lift it up. he has no concerning arterial testing, but does show significant postural flex of cervical spine w/contralat rot /SB. He is unable to get neck in fully upright position at this time and mostly feels weak. When he does lift head up, he is unable to keep it up for longer than a couple seconds at a time. He would benefit from skilled PT in order to improve ability to keep neck more upright and do daily activities like driving and shaving w/o discomfort or weakness. Physical Therapy Plan Frequency and Duration Frequency of Treatment 2x/Week Duration of treatment (weeks) 12 Plan of Care Start Date 02/12/24 Plan of Care End Date 05/06/24 Therapeutic Interventions Therapeutic Interventions Balance Training,Gait Training ,Home Exercise Program,Joint Mobilizations,Manual Therapy, Neuromuscular Re-education, Patient/Caregiver Education, Self-Care/Home Management,Soft Tissue Mobilization,Taping, Therapeutic Activities, Therapeutic Exercises Modalities Cold Pack/Ice Massage,Electric Stimulation,Hot Packs, Traction- Mechanical, Ultrasound Next Visit Focus/Plan Next Note Type Treatment Note Next Visit Plan supine neck isometrics, supine HAbd & ER, gentle manual to cervical mm and thoracic and tspine jt mobs
--- NOTE | 2024-02-14 12:01 | PT.OTN ---
Current Diagnoses Cervical root disorders, not elsewhere classified (02/14/24) Abnormal posture (02/14/24) Weakness (02/14/24) Physical Therapy Treatment Note PT-OP-A Visit Information Start: 02/07/24 18:13 Freq: Status: Active Protocol: Document 02/14/24 11:21 SP (Rec: 02/14/24 12:30 SP [id number]) Out-Patient Physical Therapy Visit Information Visit Information Visit Type Treatment Note Visit Note 10/27 post eval Visit Start Time 11:21 Visit Stop Time 12:01 Visit Number 2 Number of SENIOR EXECUTIVE COMPENSATION ANALYST Visits 1 PT-OP-B Current Condition Start: 02/07/24 18:13 Freq: Status: Active Protocol: Document 02/12/24 15:19 LR (Rec: 02/12/24 16:08 [facility] [id number]) Current Condition History of Current Condition Onset Date 2.5 months Current Complaints neck pain/weakness History of Current Condition Pt feels like neck issue has been going on for a while. He had COVID about 2.5 months ago and after that, he really started noticing it harder to look up w/his neck. His brother and sister recently saw him and noticed the difference than when they had seen him about 6 months ago. It is hard to look over shoulder when driving and look up in the store for example. It feels like pulling or tightness when lokoing up more on R. Pt reports for a long time, has some hand/thumb pain but that has been 10 years and uses a brace on the computre that helps. Doesn't feel like it is related. Prior to covid did notice some difficulty turning head for backing up but nothing like this. denies lightheadness, dizziness or MCKEON. Had migranes until 3 years ago. Prior Treatments and Tests IMPRESSION: Fixed flexion of the cervical spine. Mild, multilevel degenerative disc disease. Treatment Goals Patient/Caregiver Goals Be able hold head up normally, be able to drive easier, be able to shave his deal w/o using hand to hold up head PT-OP-C Subjective Start: 02/07/24 18:13 Freq: Status: Active Protocol: Document 02/14/24 11:21 SP (Rec: 02/14/24 12:30 SP [id number]) OP-PT Subjective Patient Comments Patient Comments Pt report not having pain but hard to keep head up to drive and look when walking. States later in day R trap gets achy and tired but puts ice on and helps it feel better. Pt demonstrates CS R SB and L rotation his normal positioning while in flexed positioning with no reports of pain. PT-OP-F Manual Assessment Start: 02/07/24 18:13 Freq: Status: Active Protocol: Document 02/12/24 15:19 [facility] (Rec: 02/12/24 16:08 [facility] [id number]) Manual Assessments Soft Tissue Assessment Soft Tissue Mobility Assessment tightness of cervical mm PT-OP-J Posture/Palpation/Skin Start: 02/07/24 18:13 Freq: Status: Active Protocol: Document 02/12/24 15:19 [facility] (Rec: 02/12/24 16:08 [facility] [id number]) Posture Evaluation Comments Posture Comments flexed, R SB, L rot of neck; L scap slightly higher PT-OP-K Range of Motion Start: 02/07/24 18:13 Freq: Status: Active Protocol: Document 02/12/24 15:19 [facility] (Rec: 02/12/24 16:08 [facility] [id number]) Cervical Spine Range of Motion Cervical Spine Active Degrees Extension 25 Rotation Left 23 Rotation Right 21 Lateral Flexion Left 25 Lateral Flexion Right 23 Comments thoracic rotation L:17deg R:17 deg; flex (chin to chest-pt rests in this position);ext measureed from fully flexed position and how much pt can get towards neutral-unable to get fully neutral, SB measured w/pt in flex PT-OP-L Special Tests Start: 02/07/24 18:13 Freq: Status: Active Protocol: Document 02/12/24 15:19 [facility] (Rec: 02/12/24 16:08 [facility] [id number]) Special Tests Cervical Spine Special Tests pec flexibility Test Results R>L limit BP Comments 145/78 arterial screening Test Results carotid and heart ausciltation WNL; position testing w/o inc symptoms Comments cranial n screen wnl except minor dec hearing& saccades min w/smoothpursuit Traction Test Results relief Spurling's Test Test Results neg PT-OP-Q Treatments Start: 02/07/24 18:13 Freq: Status: Active Protocol: Document 02/14/24 11:21 SP (Rec: 02/14/24 12:30 SP [id number]) Therapeutic Exercises Supine Exercises scap retractino Supine Exercise Name Head supported approx 40>20 deg Resistance table and noodle Equipment Used 1 pillow and angled head rest Reps/Minutes 5 SH x5 Comments with breath chin nods Supine Exercise Name Head supported approx 40>20 deg Reps/Minutes 5 Sh x5 Comments post manual shld ER Supine Exercise Name Head supported approx 40>20 deg (trialed in PT) Side bilateral Resistance AROM Equipment Used table>noodle Comments limited L, pnfree range CS isometrics Supine Exercise Name future appt Standing Exercises scap retraction Standing Exercise Name Ed elongated spine and head over pelvis Side bilateral Reps/Minutes 5 SH x3 reps Comments carryover from supine- challenge but pnfree Other Exercises STMs Other Exercise Name SCM Side bilateral Resistance R>L Comments manual and ed self during manual. Provided HO Manual Therapy Treatment Soft Tissue Mobilization shoulders Body Location pec Mobilization Type Rolling,Sustained Pressure, Other Intensity/Depth Moderate Body Position Hooklying Comments STMs and gentle pressure MWM shld IR/ER L tighter than R Neck Body Location R>L UT, suboccipitals, SCM Mobilization Type Myofascial Release,Sustained Pressure,Other Body Position Hooklying Comments STMs and manual and ed self MWM SCM /c head nods Self-Care/Home Management Treatment Education Patient Education Body Mechanics,Home Exercise Program,Joint Protection,Pain Management,Posture Other Education 8 min total throughout session anatomy and mechanics of head positioning with added tension anterior and posteriorly but with gravity applied pressure to head weakness postiorly. PT-OP-T Assessment and Plan Start: 02/07/24 18:13 Freq: Status: Active Protocol: Document 02/14/24 11:21 SP (Rec: 02/14/24 12:30 SP [id number]) Physical Therapy Assessment Goals ROM Short Term Goal (STG) Pt will improve rot to at least 40 deg STG Duration 712 Restaurant District Manager Goal (LTG) Pt will be able to have enough trunk and cervical ROM in order to feel ease for driving to keep head up and turn for backing up. LTG Duration 8/20 activities Short Term Goal (STG) Pt will be able to hold neck up long enough to shave STG Duration 7/2 Restaurant District Manager Goal (LTG) Pt will be able to hold head up for entire day w/o inc discomfort LTG Duration 820 neck stability Restaurant District Manager Goal (LTG) Pt will be able to score at least 4/5 on all directions of cervical MMT in sitting LTG Duration 05/06 Assessment Summary Assessment Pt reports less tension and slight less SB on R side of neck post manual and initiated exercises. He was able to sit up and hold head better but reports is still efforted but suprised not as challenging just need more endurance. Pt reports better understanding after ed for self SCM pincer kneading and MWM head nods assisted more ROM in neck to move head better. Challenge over noodle, will revisit another time but reported can see benefits. Physical Therapy Plan Frequency and Duration Frequency of Treatment 2x/Week Duration of treatment (weeks) 12 Plan of Care Start Date 02/12/24 Plan of Care End Date 05/06/24 Therapeutic Interventions Therapeutic Interventions Balance Training,Gait Training ,Home Exercise Program,Joint Mobilizations,Manual Therapy, Neuromuscular Re-education, Patient/Caregiver Education, Self-Care/Home Management,Soft Tissue Mobilization,Taping, Therapeutic Activities, Therapeutic Exercises Modalities Cold Pack/Ice Massage,Electric Stimulation,Hot Packs, Traction- Mechanical, Ultrasound Next Visit Focus/Plan Next Note Type Treatment Note Next Visit Plan supine neck isometrics, supine HAbd & ER, gentle manual to cervical mm and thoracic and tspine jt mobs
--- NOTE | 2024-02-20 17:45 | PT.OTN ---
Addendum entered and electronically signed by Magdalena Mahmood PT 02/24/24 15:36: PT direct supervision and direction to student PT Arthur Delaney throughout session Original Note: Current Diagnoses Cervical root disorders, not elsewhere classified (02/20/24) Abnormal posture (02/20/24) Weakness (02/20/24) Physical Therapy Treatment Note PT-OP-A Visit Information Start: 02/07/24 18:13 Freq: Status: Active Protocol: Document 02/20/24 09:53 J (Rec: 02/20/24 11:00 J [id number]) Out-Patient Physical Therapy Visit Information Visit Information Visit Type Treatment Note Visit Note 11/24 post eval Visit Start Time 09:53 Visit Stop Time 10:31 Visit Number 3 Number of CONSTRUCTION MGR Visits 0 PT-OP-B Current Condition Start: 02/07/24 18:13 Freq: Status: Active Protocol: Document 02/12/24 15:19 [facility] (Rec: 02/12/24 16:08 [facility] [id number]) Current Condition History of Current Condition Onset Date 2.5 months Current Complaints neck pain/weakness History of Current Condition Pt feels like neck issue has been going on for a while. He had COVID about 2.5 months ago and after that, he really started noticing it harder to look up w/his neck. His brother and sister recently saw him and noticed the difference than when they had seen him about 6 months ago. It is hard to look over shoulder when driving and look up in the store for example. It feels like pulling or tightness when lokoing up more on R. Pt reports for a long time, has some hand/thumb pain but that has been 10 years and uses a brace on the computre that helps. Doesn't feel like it is related. Prior to covid did notice some difficulty turning head for backing up but nothing like this. denies lightheadness, dizziness or MCKEON. Had migranes until 3 years ago. Prior Treatments and Tests IMPRESSION: Fixed flexion of the cervical spine. Mild, multilevel degenerative disc disease. Treatment Goals Patient/Caregiver Goals Be able hold head up normally, be able to drive easier, be able to shave his deal w/o using hand to hold up head PT-OP-C Subjective Start: 02/07/24 18:13 Freq: Status: Active Protocol: Document 02/20/24 09:53 JG (Rec: 02/20/24 11:00 JG [id number]) OP-PT Subjective Patient Comments Patient Comments Pt has been performing HEP 3 times per day. Pt stated that he was clipping his toe nails and that he had no problem clipping his R nails but trouble clipping the L side due to lack of L rotation. Pt is reporting less pain with short periods of ext during the day but is still achy towards the end of the day. PT-OP-F Manual Assessment Start: 02/07/24 18:13 Freq: Status: Active Protocol: Document 02/12/24 15:19 [facility] (Rec: 02/12/24 16:08 [facility] [id number]) Manual Assessments Soft Tissue Assessment Soft Tissue Mobility Assessment tightness of cervical mm PT-OP-J Posture/Palpation/Skin Start: 02/07/24 18:13 Freq: Status: Active Protocol: Document 02/12/24 15:19 [facility] (Rec: 02/12/24 16:08 [facility] [id number]) Posture Evaluation Comments Posture Comments flexed, R SB, L rot of neck; L scap slightly higher PT-OP-K Range of Motion Start: 02/07/24 18:13 Freq: Status: Active Protocol: Document 02/12/24 15:19 [facility] (Rec: 02/12/24 16:08 [facility] [id number]) Cervical Spine Range of Motion Cervical Spine Active Degrees Extension 25 Rotation Left 23 Rotation Right 21 Lateral Flexion Left 25 Lateral Flexion Right 23 Comments thoracic rotation L:17deg R:17 deg; flex (chin to chest-pt rests in this position);ext measureed from fully flexed position and how much pt can get towards neutral-unable to get fully neutral, SB measured w/pt in flex PT-OP-L Special Tests Start: 02/07/24 18:13 Freq: Status: Active Protocol: Document 02/12/24 15:19 [facility] (Rec: 02/12/24 16:08 [facility] [id number]) Special Tests Cervical Spine Special Tests pec flexibility Test Results R>L limit BP Comments 145/78 arterial screening Test Results carotid and heart ausciltation WNL; position testing w/o inc symptoms Comments cranial n screen wnl except minor dec hearing& saccades min w/smoothpursuit Traction Test Results relief Spurling's Test Test Results neg PT-OP-Q Treatments Start: 02/07/24 18:13 Freq: Status: Active Protocol: Document 02/20/24 09:53 JG (Rec: 02/20/24 11:00 [id number]) Therapeutic Exercises Supine Exercises Wide arms Supine Exercise Name Hooklying with horozontal abduction Side bilateral Reps/Minutes 30 Comments Pt needed V/C to inc chest stretch chin nods Supine Exercise Name Head supported at 14 deg and 2 pillows Side bilateral Reps/Minutes 5 Sh x5 Sitting Exercises CS isometrics Sitting Exercise Name ext, L/R rotation, L/R SB Side bilateral Reps/Minutes 5 hold x 3 scap retraction Side bilateral Equipment Used table Reps/Minutes 15 Comments Pt used V/C to improve retraction motion Standing Exercises Thoracic stretch wall Side bilateral Reps/Minutes 30 Comments Pt needed V/C to improve foot placement and shift weight back Manual Therapy Treatment Soft Tissue Mobilization Neck Body Location SCM, scalenes, trapezius, suboccipital Mobilization Type Myofascial Release,Sustained Pressure Intensity/Depth Superficial Body Position Supine Comments Provided ed on self during STM PT-OP-T Assessment and Plan Start: 02/07/24 18:13 Freq: Status: Active Protocol: Document 02/20/24 09:53 JG (Rec: 02/20/24 11:00 [id number]) Physical Therapy Assessment Goals ROM Short Term Goal (STG) Pt will improve rot to at least 40 deg STG Duration 03/28 Nursing Home Goal (LTG) Pt will be able to have enough trunk and cervical ROM in order to feel ease for driving to keep head up and turn for backing up. LTG Duration 820 activities Short Term Goal (STG) Pt will be able to hold neck up long enough to shave STG Duration 7 Nursing Home Goal (LTG) Pt will be able to hold head up for entire day w/o inc discomfort LTG Duration 8 neck stability Political Analyst Goal (LTG) Pt will be able to score at least 4/5 on all directions of cervical MMT in sitting LTG Duration 8 Assessment Summary Assessment Pt reports less tension and pain around neck at start of treatment. Pt was able to recall all HEP information other than self administered SCM pincer. Pt was able to tolerate dec head of table angle from 14 deg to 10 deg as manual therapy progressed. Pt tolerated new exercises and were added to HEP. Physical Therapy Plan Frequency and Duration Frequency of Treatment 2x/Week Duration of treatment (weeks) 12 Plan of Care Start Date 02/12/24 Plan of Care End Date 05/06/24 Therapeutic Interventions Therapeutic Interventions Balance Training,Gait Training ,Home Exercise Program,Joint Mobilizations,Manual Therapy, Neuromuscular Re-education, Patient/Caregiver Education, Self-Care/Home Management,Soft Tissue Mobilization,Taping, Therapeutic Activities, Therapeutic Exercises Modalities Cold Pack/Ice Massage,Electric Stimulation,Hot Packs, Traction- Mechanical, Ultrasound Next Visit Focus/Plan Next Note Type Treatment Note Next Visit Plan supine neck isometrics, supine HAbd & ER, gentle manual to cervical mm and thoracic and tspine jt mobs, thoracic foam roller exercises
--- NOTE | 2024-02-22 16:35 | PT.OTN ---
Current Diagnoses Cervical root disorders, not elsewhere classified (02/22/24) Abnormal posture (02/22/24) Weakness (02/22/24) Physical Therapy Treatment Note PT-OP-A Visit Information Start: 02/07/24 18:13 Freq: Status: Active Protocol: Document 02/22/24 15:25 [facility] (Rec: 02/22/24 16:26 [facility] [id number]) Out-Patient Physical Therapy Visit Information Visit Information Visit Type Treatment Note Visit Note 12/25 post eval Visit Start Time 15:23 Visit Stop Time 16:12 Visit Number 4 Number of PIPE FITTER FIRE SPRINKLER SYSTEMS Visits 1 PT-OP-B Current Condition Start: 02/07/24 18:13 Freq: Status: Active Protocol: Document 02/12/24 15:19 [facility] (Rec: 02/12/24 16:08 [facility] [id number]) Current Condition History of Current Condition Onset Date 2.5 months Current Complaints neck pain/weakness History of Current Condition Pt feels like neck issue has been going on for a while. He had COVID about 2.5 months ago and after that, he really started noticing it harder to look up w/his neck. His brother and sister recently saw him and noticed the difference than when they had seen him about 6 months ago. It is hard to look over shoulder when driving and look up in the store for example. It feels like pulling or tightness when lokoing up more on R. Pt reports for a long time, has some hand/thumb pain but that has been 10 years and uses a brace on the computre that helps. Doesn't feel like it is related. Prior to covid did notice some difficulty turning head for backing up but nothing like this. denies lightheadness, dizziness or MCKEON. Had migranes until 3 years ago. Prior Treatments and Tests IMPRESSION: Fixed flexion of the cervical spine. Mild, multilevel degenerative disc disease. Treatment Goals Patient/Caregiver Goals Be able hold head up normally, be able to drive easier, be able to shave his deal w/o using hand to hold up head PT-OP-C Subjective Start: 02/07/24 18:13 Freq: Status: Active Protocol: Document 02/22/24 15:25 [facility] (Rec: 02/22/24 16:26 [facility] [id number]) OP-PT Subjective Patient Comments Patient Comments Baljeet reports he forgot to do ex's this morning. He wakes up to use bathroom and then falls asleep in recliner. He did his ex's today about noon when he remembered. He isn't sure how to do wall ex. PT-OP-F Manual Assessment Start: 02/07/24 18:13 Freq: Status: Active Protocol: Document 02/12/24 15:19 [facility] (Rec: 02/12/24 16:08 [facility] [id number]) Manual Assessments Soft Tissue Assessment Soft Tissue Mobility Assessment tightness of cervical mm PT-OP-J Posture/Palpation/Skin Start: 02/07/24 18:13 Freq: Status: Active Protocol: Document 02/12/24 15:19 [facility] (Rec: 02/12/24 16:08 [facility] [id number]) Posture Evaluation Comments Posture Comments flexed, R SB, L rot of neck; L scap slightly higher PT-OP-K Range of Motion Start: 02/07/24 18:13 Freq: Status: Active Protocol: Document 02/12/24 15:19 [facility] (Rec: 02/12/24 16:08 [facility] [id number]) Cervical Spine Range of Motion Cervical Spine Active Degrees Extension 25 Rotation Left 23 Rotation Right 21 Lateral Flexion Left 25 Lateral Flexion Right 23 Comments thoracic rotation L:17deg R:17 deg; flex (chin to chest-pt rests in this position);ext measureed from fully flexed position and how much pt can get towards neutral-unable to get fully neutral, SB measured w/pt in flex PT-OP-L Special Tests Start: 02/07/24 18:13 Freq: Status: Active Protocol: Document 02/12/24 15:19 [facility] (Rec: 02/12/24 16:08 [facility] [id number]) Special Tests Cervical Spine Special Tests pec flexibility Test Results R>L limit BP Comments 145/78 arterial screening Test Results carotid and heart ausciltation WNL; position testing w/o inc symptoms Comments cranial n screen wnl except minor dec hearing& saccades min w/smoothpursuit Traction Test Results relief Spurling's Test Test Results neg PT-OP-Q Treatments Start: 02/07/24 18:13 Freq: Status: Active Protocol: Document 02/22/24 15:25 [facility] (Rec: 02/22/24 16:26 [facility] [id number]) Therapeutic Exercises Supine Exercises Wide arms Supine Exercise Name Hooklying with horozontal abduction Side bilateral Reps/Minutes 30 Comments Pt needed V/C to inc chest stretch scap retractino Supine Exercise Name Head supported approx 40>20 deg Equipment Used 1 pillow and angled head rest Reps/Minutes 5 SH x5 Comments with breath chin nods Supine Exercise Name Head supported at 14 deg and 2 pillows Side bilateral Reps/Minutes 5 Sh x5 Sitting Exercises CS isometrics Sitting Exercise Name ext, L/R rotation, L/R SB Side bilateral Reps/Minutes 5 hold x 3 scap retraction Side bilateral Equipment Used table Reps/Minutes 15 Comments Pt used V/C to improve retraction motion Standing Exercises Thoracic stretch wall Side bilateral Reps/Minutes 30 Comments Pt needed V/C to improve foot placement and shift weight back Other Exercises STMs Other Exercise Name SCM Side bilateral Resistance R>L Comments manual and ed self during manual. Manual Therapy Treatment Soft Tissue Mobilization shoulders Body Location R pec Mobilization Type Cross-Friction,Rolling, Sustained Pressure,Other Intensity/Depth Moderate Body Position Hooklying Comments two pillows Neck Body Location B SCM, R scalenes, R trapezius , B suboccipital Mobilization Type Myofascial Release,Sustained Pressure Intensity/Depth Superficial Body Position Hooklying Comments two pillows Self-Care/Home Management Treatment Education Patient Education Body Mechanics,Home Exercise Program,Joint Protection,Pain Management,Posture Other Education HEP review with cues written out for pt for thoracic extension wall stretch and for ears over shoulders and scapular setting. Discussed improving consistency by performing daily at bedtime and during commercials in [facility]. PT-OP-T Assessment and Plan Start: 02/07/24 18:13 Freq: Status: Active Protocol: Document 02/22/24 15:25 [facility] (Rec: 02/22/24 16:26 [facility] [id number]) Physical Therapy Assessment Goals ROM Short Term Goal (STG) Pt will improve rot to at least 40 deg STG Duration 03/28 Cane Flume Watcher Goal (LTG) Pt will be able to have enough trunk and cervical ROM in order to feel ease for driving to keep head up and turn for backing up. LTG Duration 8/20 activities Short Term Goal (STG) Pt will be able to hold neck up long enough to shave STG Duration 03/18 Prison Goal (LTG) Pt will be able to hold head up for entire day w/o inc discomfort LTG Duration 05/06 neck stability Cane Flume Watcher Goal (LTG) Pt will be able to score at least 4/5 on all directions of cervical MMT in sitting LTG Duration 05/06 Assessment Summary Assessment Treatment focus on HEP review with cues written out for pt for thoracic extension wall stretch and for ears over shoulders and scapular setting . Discussed improving consistency by performing HEP daily at bedtime and during commercials in recliner - HO given. Physical Therapy Plan Frequency and Duration Frequency of Treatment 2x/Week Duration of treatment (weeks) 12 Plan of Care Start Date 02/12/24 Plan of Care End Date 05/06/24 Therapeutic Interventions Therapeutic Interventions Balance Training,Gait Training ,Home Exercise Program,Joint Mobilizations,Manual Therapy, Neuromuscular Re-education, Patient/Caregiver Education, Self-Care/Home Management,Soft Tissue Mobilization,Taping, Therapeutic Activities, Therapeutic Exercises Modalities Cold Pack/Ice Massage,Electric Stimulation,Hot Packs, Traction- Mechanical, Ultrasound Next Visit Focus/Plan Next Note Type Treatment Note Next Visit Plan supine neck isometrics, supine HAbd & ER, gentle manual to cervical mm and thoracic and tspine jt mobs, thoracic foam roller exercises
--- NOTE | 2024-03-06 14:48 | PT.OTN ---
Current Diagnoses Cervical root disorders, not elsewhere classified (03/06/24) Abnormal posture (03/06/24) Weakness (03/06/24) Physical Therapy Treatment Note PT-OP-A Visit Information Start: 02/07/24 18:13 Freq: Status: Active Protocol: Document 03/06/24 14:09 [facility] (Rec: 03/06/24 14:48 [facility] [id number]) Out-Patient Physical Therapy Visit Information Visit Information Visit Type Treatment Note Visit Note 01/24 post eval Visit Start Time 13:53 Visit Stop Time 14:33 Visit Number 5 Number of ELECTRICAL TIMING DEVICE CALIBRATOR Visits 0 PT-OP-B Current Condition Start: 02/07/24 18:13 Freq: Status: Active Protocol: Document 02/12/24 15:19 [facility] (Rec: 02/12/24 16:08 [facility] [id number]) Current Condition History of Current Condition Onset Date 2.5 months Current Complaints neck pain/weakness History of Current Condition Pt feels like neck issue has been going on for a while. He had COVID about 2.5 months ago and after that, he really started noticing it harder to look up w/his neck. His brother and sister recently saw him and noticed the difference than when they had seen him about 6 months ago. It is hard to look over shoulder when driving and look up in the store for example. It feels like pulling or tightness when lokoing up more on R. Pt reports for a long time, has some hand/thumb pain but that has been 10 years and uses a brace on the computre that helps. Doesn't feel like it is related. Prior to covid did notice some difficulty turning head for backing up but nothing like this. denies lightheadness, dizziness or MCKEON. Had migranes until 3 years ago. Prior Treatments and Tests IMPRESSION: Fixed flexion of the cervical spine. Mild, multilevel degenerative disc disease. Treatment Goals Patient/Caregiver Goals Be able hold head up normally, be able to drive easier, be able to shave his deal w/o using hand to hold up head PT-OP-C Subjective Start: 02/07/24 18:13 Freq: Status: Active Protocol: Document 03/06/24 14:09 [facility] (Rec: 03/06/24 14:48 [facility] [id number]) OP-PT Subjective Patient Comments Patient Comments Reports compliance w/exercises . sick last weeks o missed appt Patient Reported Progress Same PT-OP-F Manual Assessment Start: 02/07/24 18:13 Freq: Status: Active Protocol: Document 02/12/24 15:19 [facility] (Rec: 02/12/24 16:08 [facility] [id number]) Manual Assessments Soft Tissue Assessment Soft Tissue Mobility Assessment tightness of cervical mm PT-OP-J Posture/Palpation/Skin Start: 02/07/24 18:13 Freq: Status: Active Protocol: Document 02/12/24 15:19 [facility] (Rec: 02/12/24 16:08 [facility] [id number]) Posture Evaluation Comments Posture Comments flexed, R SB, L rot of neck; L scap slightly higher PT-OP-K Range of Motion Start: 02/07/24 18:13 Freq: Status: Active Protocol: Document 02/12/24 15:19 [facility] (Rec: 02/12/24 16:08 [facility] [id number]) Cervical Spine Range of Motion Cervical Spine Active Degrees Extension 25 Rotation Left 23 Rotation Right 21 Lateral Flexion Left 25 Lateral Flexion Right 23 Comments thoracic rotation L:17deg R:17 deg; flex (chin to chest-pt rests in this position);ext measureed from fully flexed position and how much pt can get towards neutral-unable to get fully neutral, SB measured w/pt in flex PT-OP-L Special Tests Start: 02/07/24 18:13 Freq: Status: Active Protocol: Document 02/12/24 15:19 [facility] (Rec: 02/12/24 16:08 [facility] [id number]) Special Tests Cervical Spine Special Tests pec flexibility Test Results R>L limit BP Comments 145/78 arterial screening Test Results carotid and heart ausciltation WNL; position testing w/o inc symptoms Comments cranial n screen wnl except minor dec hearing& saccades min w/smoothpursuit Traction Test Results relief Spurling's Test Test Results neg PT-OP-Q Treatments Start: 02/07/24 18:13 Freq: Status: Active Protocol: Document 03/06/24 14:09 [facility] (Rec: 03/06/24 14:48 [facility] [id number]) Therapeutic Exercises Supine Exercises deep neck flexor Supine Exercise Name pt hold head w/hand as neutral as can then chin tuck hold & take UE away Reps/Minutes [id number] scap retractino Supine Exercise Name 1. HAbd 2. B ER Side bilateral Equipment Used lvl 1 & 2 pillows Reps/Minutes 15 ea chin nods Supine Exercise Name cervical retraction into pillow Reps/Minutes 5sec x10 CS isometrics Supine Exercise Name ext, B SB, B rot Reps/Minutes 1x5 sec ea Sidelying Exercises open book Side right Reps/Minutes 10 Comments R only d/t pt concern re: laying on R hip on hard table- to try at home PT-OP-T Assessment and Plan Start: 02/07/24 18:13 Freq: Status: Active Protocol: Document 03/06/24 14:09 [facility] (Rec: 03/06/24 14:48 [facility] [id number]) Physical Therapy Assessment Goals ROM Short Term Goal (STG) Pt will improve rot to at least 40 deg STG Duration 03/28 Usp Goal (LTG) Pt will be able to have enough trunk and cervical ROM in order to feel ease for driving to keep head up and turn for backing up. LTG Duration 05/06 activities Short Term Goal (STG) Pt will be able to hold neck up long enough to shave STG Duration 03/18 Consumer Science Teacher Goal (LTG) Pt will be able to hold head up for entire day w/o inc discomfort LTG Duration 8 neck stability Consumer Science Teacher Goal (LTG) Pt will be able to score at least 4/5 on all directions of cervical MMT in sitting LTG Duration 05/06 Assessment Summary Assessment Pt had improved B rotation after manual. Tolerated new exercises well but all were difficult and limited w/ROM. Physical Therapy Plan Frequency and Duration Frequency of Treatment 2x/Week Duration of treatment (weeks) 12 Plan of Care Start Date 02/12/24 Plan of Care End Date 05/06/24 Next Visit Focus/Plan Next Note Type Treatment Note Next Visit Plan review new exercises; cont to wrok tspine and gentle cervical massage and mobility
--- NOTE | 2024-03-11 16:48 | PT.OTN ---
Current Diagnoses Cervical root disorders, not elsewhere classified (03/11/24) Abnormal posture (03/11/24) Weakness (03/11/24) Physical Therapy Treatment Note PT-OP-A Visit Information Start: 02/07/24 18:13 Freq: Status: Active Protocol: Document 03/11/24 14:36 [facility] (Rec: 03/11/24 15:18 [facility] [id number]) Out-Patient Physical Therapy Visit Information Visit Information Visit Type Treatment Note Visit Note 02/24 post eval Access Code [id number] Visit Start Time 13:53 Visit Stop Time 15:14 Visit Number 6 Number of ANALYTICAL SCIENCES DIRECTOR Visits 1 PT-OP-B Current Condition Start: 02/07/24 18:13 Freq: Status: Active Protocol: Document 02/12/24 15:19 [facility] (Rec: 02/12/24 16:08 [facility] [id number]) Current Condition History of Current Condition Onset Date 2.5 months Current Complaints neck pain/weakness History of Current Condition Pt feels like neck issue has been going on for a while. He had COVID about 2.5 months ago and after that, he really started noticing it harder to look up w/his neck. His brother and sister recently saw him and noticed the difference than when they had seen him about 6 months ago. It is hard to look over shoulder when driving and look up in the store for example. It feels like pulling or tightness when lokoing up more on R. Pt reports for a long time, has some hand/thumb pain but that has been 10 years and uses a brace on the computre that helps. Doesn't feel like it is related. Prior to covid did notice some difficulty turning head for backing up but nothing like this. denies lightheadness, dizziness or MCKEON. Had migranes until 3 years ago. Prior Treatments and Tests IMPRESSION: Fixed flexion of the cervical spine. Mild, multilevel degenerative disc disease. Treatment Goals Patient/Caregiver Goals Be able hold head up normally, be able to drive easier, be able to shave his deal w/o using hand to hold up head PT-OP-C Subjective Start: 02/07/24 18:13 Freq: Status: Active Protocol: Document 03/11/24 14:36 [facility] (Rec: 03/11/24 15:18 AB [id number]) OP-PT Subjective Patient Comments Patient Comments Patient reports he cannot do the open book exercise due to hip pain. Paitent reports the neck is the same. left 36 deg right 31 deg CS AROM rotation PT-OP-F Manual Assessment Start: 02/07/24 18:13 Freq: Status: Active Protocol: Document 02/12/24 15:19 [facility] (Rec: 02/12/24 16:08 [facility] [id number]) Manual Assessments Soft Tissue Assessment Soft Tissue Mobility Assessment tightness of cervical mm PT-OP-J Posture/Palpation/Skin Start: 02/07/24 18:13 Freq: Status: Active Protocol: Document 02/12/24 15:19 [facility] (Rec: 02/12/24 16:08 [facility] [id number]) Posture Evaluation Comments Posture Comments flexed, R SB, L rot of neck; L scap slightly higher PT-OP-K Range of Motion Start: 02/07/24 18:13 Freq: Status: Active Protocol: Document 02/12/24 15:19 [facility] (Rec: 02/12/24 16:08 [facility] [id number]) Cervical Spine Range of Motion Cervical Spine Active Degrees Extension 25 Rotation Left 23 Rotation Right 21 Lateral Flexion Left 25 Lateral Flexion Right 23 Comments thoracic rotation L:17deg R:17 deg; flex (chin to chest-pt rests in this position);ext measureed from fully flexed position and how much pt can get towards neutral-unable to get fully neutral, SB measured w/pt in flex PT-OP-L Special Tests Start: 02/07/24 18:13 Freq: Status: Active Protocol: Document 02/12/24 15:19 [facility] (Rec: 02/12/24 16:08 [facility] [id number]) Special Tests Cervical Spine Special Tests pec flexibility Test Results R>L limit BP Comments 145/78 arterial screening Test Results carotid and heart ausciltation WNL; position testing w/o inc symptoms Comments cranial n screen wnl except minor dec hearing& saccades min w/smoothpursuit Traction Test Results relief Spurling's Test Test Results neg PT-OP-Q Treatments Start: 02/07/24 18:13 Freq: Status: Active Protocol: Document 03/11/24 14:36 [facility] (Rec: 03/11/24 15:18 AB [id number]) Therapeutic Exercises Supine Exercises CS rotation Supine Exercise Name on occipital float Side bilateral Reps/Minutes 2 min Comments Verbal cues to perform in pain free range deep neck flexor Supine Exercise Name pt hold head w/hand as neutral as can then chin tuck hold & take UE away Reps/Minutes X5 Sitting Exercises seated thoracic rotation Side bilateral Reps/Minutes X10 Comments verbal and visual cues Standing Exercises counter plank CS rotation Side bilateral Reps/Minutes X10 Comments verbal cues to turn head slowly in pain free range Manual Therapy Treatment Soft Tissue Mobilization shoulders Patient gave verbal consent for manual Yes treatment Body Location R pec Mobilization Type Cross-Friction,Rolling, Sustained Pressure Intensity/Depth Moderate Body Position Hooklying Comments two pillows Neck Patient gave verbal consent for manual Yes treatment Body Location B scalenes, B trapezius, levator scap, CS paraspinals Mobilization Type Cross-Friction,Myofascial Release,Sustained Pressure Intensity/Depth Superficial Body Position Hooklying Comments two pillows PT-OP-T Assessment and Plan Start: 02/07/24 18:13 Freq: Status: Active Protocol: Document 03/11/24 14:36 [facility] (Rec: 03/11/24 15:18 AB [id number]) Physical Therapy Assessment Goals ROM Short Term Goal (STG) Pt will improve rot to at least 40 deg STG Duration 712 Purchasing Buyer Goal (LTG) Pt will be able to have enough trunk and cervical ROM in order to feel ease for driving to keep head up and turn for backing up. LTG Duration 8/20 activities Short Term Goal (STG) Pt will be able to hold neck up long enough to shave STG Duration 7/2 Correction Goal (LTG) Pt will be able to hold head up for entire day w/o inc discomfort LTG Duration 8/20 neck stability Correction Goal (LTG) Pt will be able to score at least 4/5 on all directions of cervical MMT in sitting LTG Duration 820 Assessment Summary Assessment No change in CS rotation AROM end of session, but patient holding head up better end of session, not WNL. Physical Therapy Plan Frequency and Duration Frequency of Treatment 2x/Week Duration of treatment (weeks) 12 Plan of Care Start Date 02/12/24 Plan of Care End Date 05/06/24 Next Visit Focus/Plan Next Note Type Treatment Note Next Visit Plan review new exercises; cont to wrok tspine and gentle cervical massage and mobility
--- NOTE | 2024-03-13 16:12 | PT.OTN ---
Current Diagnoses Cervical root disorders, not elsewhere classified (03/13/24) Abnormal posture (03/13/24) Weakness (03/13/24) Physical Therapy Treatment Note PT-OP-A Visit Information Start: 02/07/24 18:13 Freq: Status: Active Protocol: Document 03/13/24 15:18 AB (Rec: 03/13/24 16:12 AB [id number]) Out-Patient Physical Therapy Visit Information Visit Information Visit Type Treatment Note Visit Note 03/26 post eval Access Code [email or web address] Visit Start Time 15:18 Visit Stop Time 16:02 Visit Number 7 Number of MANAGER FOREIGN Visits 2 PT-OP-B Current Condition Start: 02/07/24 18:13 Freq: Status: Active Protocol: Document 02/12/24 15:19 [facility] (Rec: 02/12/24 16:08 [facility] [id number]) Current Condition History of Current Condition Onset Date 2.5 months Current Complaints neck pain/weakness History of Current Condition Pt feels like neck issue has been going on for a while. He had COVID about 2.5 months ago and after that, he really started noticing it harder to look up w/his neck. His brother and sister recently saw him and noticed the difference than when they had seen him about 6 months ago. It is hard to look over shoulder when driving and look up in the store for example. It feels like pulling or tightness when lokoing up more on R. Pt reports for a long time, has some hand/thumb pain but that has been 10 years and uses a brace on the computre that helps. Doesn't feel like it is related. Prior to covid did notice some difficulty turning head for backing up but nothing like this. denies lightheadness, dizziness or MCKEON. Had migranes until 3 years ago. Prior Treatments and Tests IMPRESSION: Fixed flexion of the cervical spine. Mild, multilevel degenerative disc disease. Treatment Goals Patient/Caregiver Goals Be able hold head up normally, be able to drive easier, be able to shave his deal w/o using hand to hold up head PT-OP-C Subjective Start: 02/07/24 18:13 Freq: Status: Active Protocol: Document 03/13/24 15:18 AB (Rec: 03/13/24 16:12 AB [id number]) OP-PT Subjective Patient Comments Patient Comments Patient reports performing the HEP daily, but comments he can feel it it the calf for the ( describes counter plank CS rotation )and has been getting some intermittent sharp pain in the left calf muscles. Patient reports the neck is the same. 36 deg right 23 deg left AROM CS rotation PT-OP-F Manual Assessment Start: 02/07/24 18:13 Freq: Status: Active Protocol: Document 02/12/24 15:19 [facility] (Rec: 02/12/24 16:08 [facility] [id number]) Manual Assessments Soft Tissue Assessment Soft Tissue Mobility Assessment tightness of cervical mm PT-OP-J Posture/Palpation/Skin Start: 02/07/24 18:13 Freq: Status: Active Protocol: Document 02/12/24 15:19 [facility] (Rec: 02/12/24 16:08 [facility] [id number]) Posture Evaluation Comments Posture Comments flexed, R SB, L rot of neck; L scap slightly higher PT-OP-K Range of Motion Start: 02/07/24 18:13 Freq: Status: Active Protocol: Document 02/12/24 15:19 [facility] (Rec: 02/12/24 16:08 [facility] [id number]) Cervical Spine Range of Motion Cervical Spine Active Degrees Extension 25 Rotation Left 23 Rotation Right 21 Lateral Flexion Left 25 Lateral Flexion Right 23 Comments thoracic rotation L:17deg R:17 deg; flex (chin to chest-pt rests in this position);ext measureed from fully flexed position and how much pt can get towards neutral-unable to get fully neutral, SB measured w/pt in flex PT-OP-L Special Tests Start: 02/07/24 18:13 Freq: Status: Active Protocol: Document 02/12/24 15:19 [facility] (Rec: 02/12/24 16:08 [facility] [id number]) Special Tests Cervical Spine Special Tests pec flexibility Test Results R>L limit BP Comments 145/78 arterial screening Test Results carotid and heart ausciltation WNL; position testing w/o inc symptoms Comments cranial n screen wnl except minor dec hearing& saccades min w/smoothpursuit Traction Test Results relief Spurling's Test Test Results neg PT-OP-Q Treatments Start: 02/07/24 18:13 Freq: Status: Active Protocol: Document 03/13/24 15:18 AB (Rec: 03/13/24 16:12 AB [id number]) Therapeutic Exercises Supine Exercises CS rotation Supine Exercise Name on occipital float Side bilateral Reps/Minutes 2 min Comments Verbal cues to perform in pain free range Wide arms Supine Exercise Name Hooklying with horozontal abduction Side bilateral Reps/Minutes 2 min Comments verbal and tactile cues for UE position Sitting Exercises seated thoracic rotation Side bilateral Reps/Minutes X10 Comments Verbal cues to initiate Standing Exercises counter plank CS rotation Side bilateral Reps/Minutes X10 Comments verbal cues to turn head slowly in pain free range scap retraction Side bilateral Resistance level one band Reps/Minutes X10 Comments verbal cues Manual Therapy Treatment Soft Tissue Mobilization Neck Body Location B scalenes, B trapezius, levator scap, CS paraspinals, SCM Mobilization Type Cross-Friction,Myofascial Release,Sustained Pressure Intensity/Depth Superficial Body Position Hooklying Comments two pillows Joint Mobilizations scapular mobilization Joint bilateral scapula Direction depression and adduction Grade III Body Position Sitting Reps/Duration X10 each direction each UE Comments Monitored for pain Taping CS Body Location for posture and to unload UT, levator scap Type of Tape Kinesiotape Skin Inspection parapspinals near occiput to thoracic paraspinals, X arcross CS UT and lev Comments Pt ed to remove 3-5 days or immediately if skin irritation occurs PT-OP-T Assessment and Plan Start: 02/07/24 18:13 Freq: Status: Active Protocol: Document 03/13/24 15:18 AB (Rec: 03/13/24 16:12 AB [id number]) Physical Therapy Assessment Goals ROM Short Term Goal (STG) Pt will improve rot to at least 40 deg STG Duration 03/28 Barrel Cleaner Goal (LTG) Pt will be able to have enough trunk and cervical ROM in order to feel ease for driving to keep head up and turn for backing up. LTG Duration 05/06 activities Short Term Goal (STG) Pt will be able to hold neck up long enough to shave STG Duration 03/18 [facility] Goal (LTG) Pt will be able to hold head up for entire day w/o inc discomfort LTG Duration 05/06 neck stability Barrel Cleaner Goal (LTG) Pt will be able to score at least 4/5 on all directions of cervical MMT in sitting LTG Duration 05/06 Assessment Summary Assessment 38 left 24 right Physical Therapy Plan Frequency and Duration Frequency of Treatment 2x/Week Duration of treatment (weeks) 12 Plan of Care Start Date 02/12/24 Plan of Care End Date 05/06/24 Therapeutic Interventions Therapeutic Interventions Balance Training,Gait Training ,Home Exercise Program,Joint Mobilizations,Manual Therapy, Neuromuscular Re-education, Patient/Caregiver Education, Self-Care/Home Management,Soft Tissue Mobilization,Taping, Therapeutic Activities, Therapeutic Exercises Modalities Cold Pack/Ice Massage,Electric Stimulation,Hot Packs, Traction- Mechanical, Ultrasound Next Visit Focus/Plan Next Note Type Treatment Note Next Visit Plan review new exercises; cont to wrok tspine and gentle cervical massage and mobility, cheerleaders, thoracic rotation on wall
--- NOTE | 2024-04-10 08:54 | PT.OPDS ---
Current Diagnoses Cervical root disorders, not elsewhere classified (03/13/24) Abnormal posture (03/13/24) Weakness (03/13/24) Visit Care Team Role Provider Type Eusebia Tabares MD Attending Provider Non-Staff Family Provider Primary Care Provider Referring Provider Specialty: Medical Address: [address] [place] [address], [id number] Email: Visit Number Visit Number 7 Discharge Summary PT-OP-B Current Condition Start: 02/07/24 18:13 Freq: Status: Active Protocol: Document 02/12/24 15:19 [facility] (Rec: 02/12/24 16:08 [facility] [id number]) Current Condition History of Current Condition Onset Date 2.5 months Current Complaints neck pain/weakness History of Current Condition Pt feels like neck issue has been going on for a while. He had COVID about 2.5 months ago and after that, he really started noticing it harder to look up w/his neck. His brother and sister recently saw him and noticed the difference than when they had seen him about 6 months ago. It is hard to look over shoulder when driving and look up in the store for example. It feels like pulling or tightness when lokoing up more on R. Pt reports for a long time, has some hand/thumb pain but that has been 10 years and uses a brace on the computre that helps. Doesn't feel like it is related. Prior to covid did notice some difficulty turning head for backing up but nothing like this. denies lightheadness, dizziness or MCKEON. Had migranes until 3 years ago. Prior Treatments and Tests IMPRESSION: Fixed flexion of the cervical spine. Mild, multilevel degenerative disc disease. Treatment Goals Patient/Caregiver Goals Be able hold head up normally, be able to drive easier, be able to shave his deal w/o using hand to hold up head PT-OP-C Subjective Start: 02/07/24 18:13 Freq: Status: Active Protocol: Document 03/13/24 15:18 [facility] (Rec: 03/13/24 16:12 [facility] [id number]) OP-PT Subjective Patient Comments Patient Comments Patient reports performing the HEP daily, but comments he can feel it it the calf for the ( describes counter plank CS rotation )and has been getting some intermittent sharp pain in the left calf muscles. Patient reports the neck is the same. 36 deg right 23 deg left AROM CS rotation PT-OP-F Manual Assessment Start: 02/07/24 18:13 Freq: Status: Active Protocol: Document 02/12/24 15:19 [facility] (Rec: 02/12/24 16:08 [facility] [id number]) Manual Assessments Soft Tissue Assessment Soft Tissue Mobility Assessment tightness of cervical mm PT-OP-J Posture/Palpation/Skin Start: 02/07/24 18:13 Freq: Status: Active Protocol: Document 02/12/24 15:19 [facility] (Rec: 02/12/24 16:08 [facility] [id number]) Posture Evaluation Comments Posture Comments flexed, R SB, L rot of neck; L scap slightly higher PT-OP-K Range of Motion Start: 02/07/24 18:13 Freq: Status: Active Protocol: Document 02/12/24 15:19 [facility] (Rec: 02/12/24 16:08 [facility] [id number]) Cervical Spine Range of Motion Cervical Spine Active Degrees Extension 25 Rotation Left 23 Rotation Right 21 Lateral Flexion Left 25 Lateral Flexion Right 23 Comments thoracic rotation L:17deg R:17 deg; flex (chin to chest-pt rests in this position);ext measureed from fully flexed position and how much pt can get towards neutral-unable to get fully neutral, SB measured w/pt in flex PT-OP-L Special Tests Start: 02/07/24 18:13 Freq: Status: Active Protocol: Document 02/12/24 15:19 [facility] (Rec: 02/12/24 16:08 [facility] [id number]) Special Tests Cervical Spine Special Tests pec flexibility Test Results R>L limit BP Comments 145/78 arterial screening Test Results carotid and heart ausciltation WNL; position testing w/o inc symptoms Comments cranial n screen wnl except minor dec hearing& saccades min w/smoothpursuit Traction Test Results relief Spurling's Test Test Results neg PT-OP-T Assessment and Plan Start: 02/07/24 18:13 Freq: Status: Active Protocol: Document 04/10/24 08:53 [facility] (Rec: 04/10/24 08:54 [facility] [id number]) Physical Therapy Assessment Goals ROM Short Term Goal (STG) Pt will improve rot to at least 40 deg STG Duration 03/28 Prison Goal (LTG) Pt will be able to have enough trunk and cervical ROM in order to feel ease for driving to keep head up and turn for backing up. LTG Duration 05/06 activities Short Term Goal (STG) Pt will be able to hold neck up long enough to shave STG Duration 03/18 [employer] Goal (LTG) Pt will be able to hold head up for entire day w/o inc discomfort LTG Duration 05/06 neck stability [employer] Goal (LTG) Pt will be able to score at least 4/5 on all directions of cervical MMT in sitting LTG Duration 05/06 Assessment Summary Assessment Pt had improved ROM w/PT but still had fwd bent head position. He was compliant w/ HEP. DC d/t pt request. Patient called to cancel all remaining visits. States that it is too difficult to make the visits with his hip pain and driving is becoming an issue for him. Physical Therapy Plan Discharge Physical Therapy Discharge Reasons Patient Request
== END 2024-04-11 08:01 | disposition home or self-care (01) ==
LOC: PHYS 15:15
PROVIDERS: Family Provider Family Medicine; PCP Family Medicine; Referring Provider Family Medicine; Visit Provider Family Medicine
DX: G54.2 Cervical root disorders, not elsewhere classified (principal); R53.1 Weakness; R29.3 Abnormal posture
CPT/HCPCS: 97110; 97140; 97162; 97535

== ENCOUNTER → 2025-01-12 13:32 | Outpatient (CLI) | payer MEDICARE, OTHER, SELFPAY ==
[2018-10-21 18:11] VITALS: BMI 30.6
--- NOTE | 2025-01-12 13:35 | DI.MRI.S_ITS ---
PROCEDURE: MR HEAD/BRAIN WO CON INDICATIONS: STROKE/SUDDEN HEAD DROP TECHNIQUE: Non-contrast axial T1 spin echo, axial T2 fast spin echo, sagittal and axial FLAIR, coronal T2 fast spin echo, axial gradient echo, axial diffusion and ADC through the brain. COMPARISON: None. FINDINGS: Image quality: Excellent. CSF spaces: Ventricles appear symmetric in size and shape. Basal cisterns are patent. No extra-axial fluid collections. Brain: No intracranial bleeds or mass effects. There is cerebral volume loss for age. There are periventricular and deep white matter chronic small vessel ischemic changes. 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 Brainstem appears normal. Diffusion-weighted images show no acute infarct. No chronic ischemic insults. Normal intravascular flow voids are present. Skull and face: Calvarial bone marrow is normal in signal. Orbits are normal. Sinuses: Sinuses and mastoids are clear. IMPRESSION: No acute or subacute infarct. No acute intracranial abnormalities. Age-related global volume loss and chronic microvascular ischemic changes are present. 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 Dictated by: Carlos Hurtado M.D. on 01/12/2025 at 15:35 Approved by: Carlos Hurtado M.D. on 01/12/2025 at 15:39
== END ==
LOC: MRI 13:33
PROVIDERS: Family Provider Family Medicine; PCP Family Medicine; Referring Provider Psychiatry & Neurology Neurology; Visit Provider Psychiatry & Neurology Neurology
DX: R29.898 Other symptoms and signs involving the musculoskeletal system (principal); G70.9 Myoneural disorder, unspecified
CPT/HCPCS: 70551

== ENCOUNTER → 2025-03-10 10:37 | Outpatient (CLI) | payer MEDICARE, OTHER, SELFPAY ==
[2018-10-21 18:11] VITALS: BMI 30.6
--- NOTE | 2025-03-10 10:42 | DI.MRI.S_ITS ---
PROCEDURE: MR CERVICAL SPINE WO CON INDICATIONS: NEUROMUSCULAR WEAKNESS,CROPPED HEAD SYNDROME/LAB TECHNIQUE: Noncontrast sagittal T1 spin echo and T2 fast spin echo, sagittal STIR, foraminal oblique sagittal T2 fast spin echo, and axial gradient echo or T2 fast spin echo through the cervical spine. COMPARISON: None. FINDINGS: Image quality: Excellent. Alignment and Curvature: Loss of cervical lordosis. No spondylolisthesis. Bone Marrow: Marrow demonstrates normal overall signal. Spinal Cord: Visualized spinal cord has normal size and signal. No cerebellar tonsillar herniation. Paraspinous Soft Tissues: No paravertebral masses. Prevertebral soft tissues are normal in thickness. C2-C3: Normal appearance. C3-C4: There is posterior osteophyte/disc bulge complex as well as bilateral uncinate process arthropathy. There is mild central canal narrowing as well as mild bilateral foraminal stenosis. C4-C5: There is also posterior osteophyte/disc bulge complex and bilateral uncinate process arthropathy, with mild bilateral foraminal narrowing and mild central canal stenosis. C5-C6: There is posterior osteophyte/disc bulge complex and right uncinate process arthropathy. There is mild to moderate right lateral recess and foraminal stenosis, also with mild central spinal stenosis. C6-C7: There is bilateral uncinate process arthropathy with mild bilateral foraminal narrowing C7-T1: There is posterior osteophyte/disc bulge complex with mild right foraminal narrowing. IMPRESSION: 1. Multilevel degenerative changes as above, with mild central canal stenosis in the C3-C6 region. 2. No definite soft disc extrusion or acute osseous lesions seen. Dictated by: Hua Doran M.D. on 03/10/2025 at 20:21 Approved by: Hua Doran M.D. on 03/10/2025 at 20:27
== END ==
LOC: MRI 10:39
PROVIDERS: Family Provider Family Medicine; PCP Family Medicine; Referring Provider Psychiatry & Neurology Neurology; Visit Provider Psychiatry & Neurology Neurology
DX: M47.812 Spondylosis without myelopathy or radiculopathy, cervical region (principal); M48.02 Spinal stenosis, cervical region; G70.9 Myoneural disorder, unspecified; R29.898 Other symptoms and signs involving the musculoskeletal system
CPT/HCPCS: 36415; 72141